=== PATIENT | male | born 1960 | race Caucasian/White ===

== ENCOUNTER 2020-09-12 10:27 | Inpatient (IN) ==
[2020-09-12] MEDS: GABAPENTIN 600 MG TABLET PO SCH ×2 (12:12→16:50)
[2020-09-12] MEDS: INSULIN LISPRO 100 UNITS/ML VIAL SC SCH ×2 (12:13→16:49)
[2020-09-12] MEDS: MEROPENEM 1 GM in NORMAL SALINE 100 ML IV SCH ×2 (12:14→18:27)
[2020-09-12 12:25] LABS: Hematocrit 33.3 % (42.0-52.0); Hemoglobin 10.9 gm/dL (13.5-18.0); Mean Cell Volume 89.5 fl (78-100); Mean Corpuscular Hemoglobin 29.3 pg (27-31); Mean Corpuscular Hgb Conc 32.7 g/dl (32-36); Mean Platelet Volume 9.1 fl (8-11.3); Platelet Count 293 K/mm3 (150-450); Red Blood Count 3.72 M/mm3 (4.7-6.0); Red Cell Distribution Width 12.9 % (11.5-14.0)
[2020-09-12 12:28] LABS: Total Cells Counted 100
[2020-09-12 12:37] LABS: Albumin * 2.8 gm/dl (3.4-5.0); Anion Gap 14.7 mmol/L (6.8-13.8); BUN/Creatinine Ratio 12.4 (9.0-21.6); Bilirubin, Total 0.3 mg/dL (0.0-1.1); Ca. Corrected For Albumin 9.7 mg/dL (8.4-10.2); Calcium * 9.1 mg/dL (7.9-10.9); Carbon Dioxide 25.3 mmol/L (24-32.6); Total Protein 7.5 gm/dL (6.2-8.2)
[2020-09-12] MEDS ORDERED: NORMAL SALINE 1,000 ML IV PRN (12:58)
[2020-09-12] MEDS ORDERED: ALPRAZolam 1 MG TABLET PO ONE (13:30)
[2020-09-12 13:51] LABS: Band 3 % (0-2.0); Lymphocyte 10 % (20-51); Monocyte 10 % (0-9); Neutrophil 77 % (42-75); Neutrophil # 11.6 K/mm3 (1.3-6.0)
[2020-09-12 13:52] LABS: Platelet Estimate Normal (NORMAL); RBC Morphology Normal (NORMAL)
--- NOTE | 2020-09-12 15:32 | HP ---
Chief Complaint - Chief Complaint Date of Service: 09/12/20 Time of Service: 11:00 Chief Complaint: Right foot swelling and redness History of Present Illness: Дмитрий is a 60 yo male presenting to clinic for right great toe swelling, pain, and redness. He reports the symptoms started 5 days ago with fever and chills. He was seen in the ER and had an array of testing done including labs which were significant for WBC of 17k, lactic acid of 3.5, and an elevated procalcitonin. He had a negative covid, negative influenza, and a positive strep swab. Chest xray was negative for acute illness. He was treated with penicillin. Two days later he began noticing right great toe redness, pain, and swelling. It swelled large enough that two days ago it started to weep fluid. He continues to have fever, general malaise, fatigue, and worsening redness, pain, and swelling. His right foot is now all swollen and red. Labs were checked and his WBC remains elevated at 15k and his procalcitonin remains elevate at 1.8. His creatinine which was 1.8 5 days ago is now 2.5 and he currently has a fever of 38.1. Medical History (Last Reviewed 09/12/20 @ 10:59 by Rachel Byrd RN) Hypertension (Chronic) Onset Date: Unknown Hypercholesterolemia (Chronic) Onset Date: Unknown Hemianopia, homonymous, left (Chronic) Onset Date: Unknown Diabetic nephropathy (Chronic) Onset Date: Unknown Diabetes mellitus, type II (Chronic) Onset Date: Unknown Diabetic eye exam Onset Date: 05/18/18 05/18/2019: [facility] Dr. Po Le; diabetic retinopathy was not found in either eye. 05/14/2018: [facility] Dr. Po Le; diabetic retinopathy was not found in either eye. 05/10/2017: [facility] Dr. Po Le; diabetic retinopathy was not found in either eye. CVA (cerebral vascular accident) Onset Date: Unknown Surgical History: Surgical History (Last Reviewed 09/12/20 @ 10:59 by Rachel Byrd RN) History of tonsillectomy Onset Date: Unknown Family History: Family History (Last Reviewed 09/12/20 @ 10:59 by Rachel Byrd RN) Father Leukemia Mother Hypertension Hypercholesteremia Social History: (Last Reviewed 09/12/20 @ 11:00 by Rachel Byrd RN) Social History: adopted: No long-term: No Marital status: household members: family number of children: 1 current occupational status: retired Previous occupational history: [employer] Highest level of school completed/degree received: high school graduate Financial difficulty paying for basics: not very hard Sexually Active: Yes Service: No Tobacco: Smoking Status: Never smoker Alcohol: alcohol intake: former Substance Use: substance use type: does not use Dietary Habits: caffeine: Yes Type: coffee Cassia/Samaritan: special cassia needs: No Review Of Systems (GEN) - Review of Systems Generalized/Overall Review: Present: Weakness, Chills, Fever, Malaise, Fatigue EENTM: Present: No Symptoms Reported Respiratory: Absent: Cough, Shortness of Breath Cardiac: Absent: Chest Pain, Palpitations Abdominal: Absent: Nausea, Vomiting Genitourinary: Absent: Burning, Frequency Musculoskeletal: Present: Joint Pain, Joint Swelling Neurological: Present: Anxiety, Weakness Skin: Present: Change in Color Endocrine: Present: No Symptoms Reported Immunizations: IMMUNIZATION HX Immunizations Up to Date Yes History of Influenza Vaccine No Hx Pneumococcal Vaccination No Allergies/Adverse Reactions: Allergies Allergy/AdvReac Type Severity Reaction Status Date / Time No Known Allergies Allergy Verified 09/12/20 10:58 Home Medications: HOME MEDICATIONS Accu-Chek Sharona Plus Meter See Dose Instructions .ROUTE .MEDSUPPLY #1 ea NS 09/30/18 [Last Taken Unknown] rosuvastatin 40 mg tablet 40 mg PO DAILY #90 tab 01/13/20 [Last Taken Unknown] metoprolol succinate 50 mg tablet,extended release 24 hr 50 mg PO DAILY #90 tab 06/02/20 [Last Taken Unknown] lisinopril 20 mg-hydrochlorothiazide 25 mg tablet 2 tab PO DAILY #180 tab 06/28/20 [Last Taken Unknown] Accu-Chek Sharona Control Soln solution See Rx Instructions .ROUTE .MEDSUPPLY #1 ea NS 08/08/20 [Last Taken Unknown] Accu-Chek Sharona Plus test strp See Dose Instructions .ROUTE .MEDSUPPLY #100 ea NS 08/08/20 [Last Taken Unknown] lancets See Dose Instructions .ROUTE .MEDSUPPLY #100 ea 08/08/20 [Last Taken Unknown] amlodipine 10 mg tablet 10 mg PO DAILY #90 tab 08/09/20 [Last Taken Unknown] blood sugar diagnostic See Dose Instructions .ROUTE .MEDSUPPLY #50 ea 08/09/20 [Last Taken Unknown] gabapentin 600 mg tablet 1,200 mg PO TID 90 Days #540 tab 08/09/20 [Last Taken Unknown] glimepiride 2 mg tablet 2 mg PO DAILY #90 tab 08/09/20 [Last Taken Unknown] metformin 1,000 mg tablet 1,000 mg PO BID #180 tab 08/09/20 [Last Taken Unknown] rivaroxaban 20 mg tablet 20 mg PO DAILY 90 Days #90 tab 08/09/20 [Last Taken Unknown] Ascorbic Acid [Vitamin C] 500 mg PO DAILY 09/12/20 [Last Taken Unknown] Multivitamin 1 ea PO DAILY 09/12/20 [Last Taken Unknown] Exam - Exam Vital Signs: Vital Signs - Last Taken Temp 38.1 C H 09/12/20 11:05 Pulse 98 09/12/20 11:05 Resp 16 09/12/20 11:05 BP 136/73 09/12/20 11:05 Pulse Ox 96 09/12/20 11:05 Constitutional: Present: Alert, Oriented x3, Cooperative ENT Exam: Present: hearing grossly normal Eye Exam: bilateral eye: normal inspection Respiratory: Present: lungs clear, normal breath sounds, no respiratory distress Cardiovascular/Chest: Present: no murmur, tachycardia Peripheral Pulses: radial (R): 2+, radial (L): 2+ Abdomen: Present: Normal bowel sounds, soft, nontender, nondistended Skin Exam: Present: other - Severe erythema of right great toe spreading through foot to ankle, more prominent medially, diffuse swelling of right foot with the most pronounced swelling at right great toe which appears like it is about to burst and is the size of raquet ball. Right great toe is actively weeping serous fluid Neurologic: Present: alert, normal mood/affect, oriented x 3 Eye contact: Present: cooperative, good eye contact, normal speech Diagnostic Studies: Abnormal Lab Results 09/12/20 09/12/20 09/12/20 Range/Units 12:09 12:09 12:09 WBC 15.0 H (4.0-10.5) K/mm3 RBC 3.72 L (4.7-6.0) M/mm3 Hgb 10.9 L (13.5-18.0) gm/dL Hct 33.3 L (42.0-52.0) % Neutrophils % (Manual) 77 H (42-75) % Band Neuts % (Manual) 3 H (0-2.0) % Lymphocytes % (Manual) 10 L (20-51) % Monocytes % (Manual) 10 H (0-9) % Neutrophils # (Manual) 11.6 H (1.3-6.0) K/mm3 Monocytes # (Manual) 1.5 H (0.0-1.0) k/mm3 Anion Gap 14.7 H (6.8-13.8) mmol/L BUN 31 H (6-23) mg/dL Creatinine 2.50 H D (0.4-1.4) mg/dL Est GFR (Non-Af Amer) 28 L D (60-130) mL/min Random Glucose 256 H (70-110) mg/dL Albumin 2.8 L (3.4-5.0) gm/dl Procalcitonin 1.87 H (0.05-0.50) ng/mL Laboratory Results WBC 15.0 K/mm3 (4.0-10.5) H 09/12/20 12:09 RBC 3.72 M/mm3 (4.7-6.0) L 09/12/20 12:09 Hgb 10.9 gm/dL (13.5-18.0) L 09/12/20 12:09 Hct 33.3 % (42.0-52.0) L 09/12/20 12:09 MCV 89.5 fl (78-100) 09/12/20 12:09 MCH 29.3 pg (27-31) 09/12/20 12:09 MCHC 32.7 g/dl (32-36) 09/12/20 12:09 RDW 12.9 % (11.5-14.0) 09/12/20 12:09 Plt Count 293 K/mm3 (150-450) 09/12/20 12:09 MPV 9.1 fl (8-11.3) 09/12/20 12:09 Neutrophils % (Manual) 77 % (42-75) H 09/12/20 12:09 Band Neuts % (Manual) 3 % (0-2.0) H 09/12/20 12:09 Lymphocytes % (Manual) 10 % (20-51) L 09/12/20 12:09 Monocytes % (Manual) 10 % (0-9) H 09/12/20 12:09 Neutrophils # (Manual) 11.6 K/mm3 (1.3-6.0) H 09/12/20 12:09 Lymphocytes # (Manual) 1.5 k/mm3 (1.5-3.5) 09/12/20 12:09 Monocytes # (Manual) 1.5 k/mm3 (0.0-1.0) H 09/12/20 12:09 Platelet Estimate Normal (NORMAL) 09/12/20 12:09 RBC Morphology Normal (NORMAL) 09/12/20 12:09 Sodium 137 mmol/L (132-142) 09/12/20 12:09 Plasma Sodium 139 mmol/L (130-142) 09/12/20 12:09 Potassium 4.0 mmol/L (3.4-4.6) 09/12/20 12:09 Chloride 101 mmol/L (97-106) 09/12/20 12:09 Carbon Dioxide 25.3 mmol/L (24-32.6) 09/12/20 12:09 Anion Gap 14.7 mmol/L (6.8-13.8) H 09/12/20 12:09 BUN 31 mg/dL (6-23) H 09/12/20 12:09 Creatinine 2.50 mg/dL (0.4-1.4) H D 09/12/20 12:09 Est GFR (Non-Af Amer) 28 mL/min (60-130) L D 09/12/20 12:09 BUN/Creatinine Ratio 12.4 (9.0-21.6) 09/12/20 12:09 Random Glucose 256 mg/dL (70-110) H 09/12/20 12:09 Lactic Acid, Venous 1.9 mmol/L (0.4-2.0) 09/12/20 12:09 Calcium 9.1 mg/dL (7.9-10.9) 09/12/20 12:09 Calcium Adj for Albumin 9.7 mg/dL (8.4-10.2) 09/12/20 12:09 Total Bilirubin 0.3 mg/dL (0.0-1.1) 09/12/20 12:09 AST 24 U/L (0-48) 09/12/20 12:09 ALT 42 U/L (19-67) 09/12/20 12:09 Alkaline Phosphatase 97 U/L (50-170) 09/12/20 12:09 Total Protein 7.5 gm/dL (6.2-8.2) 09/12/20 12:09 Albumin 2.8 gm/dl (3.4-5.0) L 09/12/20 12:09 Procalcitonin 1.87 ng/mL (0.05-0.50) H 09/12/20 12:09 SARS-CoV-2 (PCR) Not detected (NotDetected) 09/12/20 11:35 Assessment/Plan - Narrative Narrative: Дмитрий is a 60 yo male with suspected severe sepsis (fever, leukocytosis, and acute on chronic kidney failure) secondary to diabetic foot ulcer with cellulitis with possible osteomyelitis. He has failed outpatient treatment as he has been on penicillin since 09/07/20 and his foot erythema, swel ling, and pain are worsening. Right great toe infection is severe appearing with the toe the size of a raquetball, bright red, and weeping fluid. I am concerned that there is osteomyelitis and possible sepsis. He has failed outpatient treatment and needs IV antibiotics to cover for the potential sepsis. Will treat with Meropenem and will give IV NS sepsis bolus. Will obtain blood cultures x 2. He has acute on chronic kidney failure with GFR 28 which is worsened from his baseline which is normally 30-60. He is currently in stage 4. Will treat with IV fluids as his GFR is currently too low to get contrast enhanced MRI which is needed to evaluate for osteomyelitis. Will hold metformin and treat diabetes with corrective dose insulin in the hospital. Expect 2-3 days to treat with IV antibiotics, obtain MRI, and monitor for response to treatment. Potential for surgery if there is severe infection into the bone. Will admit to inpatient status due to severity of infection and failed outpatient treatment. - Assessment/Plan (1) Sepsis Problem: Acute Qualifiers: Sepsis type: sepsis due to unspecified organism Sepsis acute organ dysfunction status: with acute organ dysfunction Severe sepsis acute organ dysfunction type: acute renal failure Acute renal failure type: unspecified Severe sepsis shock status: without septic shock Qualified Code(s): A41.9 - Sepsis, unspecified organism; R65.20 - Severe sepsis without septic shock; N17.9 - Acute kidney failure, unspecified (2) Diabetic foot ulcer with osteomyelitis Problem: Suspected (3) Osteomyelitis of great toe of right foot Problem: Suspected (4) Cellulitis of great toe, right Problem: Acute (5) Diabetes mellitus, type II Problem: Chronic Qualifiers: Diabetes mellitus snf insulin use: without snf use Diabetes mellitus complication status: with skin complications Diabetes mellitus complication detail: with foot ulcer Qualified Code(s): E11.621 - Type 2 diabetes mellitus with foot ulcer; L97.509 - Non-pressure chronic ulcer of other part of unspecified foot with unspecified severity (6) Hemianopia, homonymous, left Problem: Chronic (7) Strep pharyngitis Problem: Chronic
[2020-09-12] MEDS: SACCHAROMYCES BOULARDII 250 MG CAPSULE PO SCH (20:27)
[2020-09-12] MEDS: ROSUVASTATIN CALCIUM 20 MG TABLET PO SCH (20:27)
[2020-09-13] MEDS: MEROPENEM 1 GM in NORMAL SALINE 100 ML IV SCH ×3 (02:43→18:46)
[2020-09-13] MEDS: INSULIN LISPRO 100 UNITS/ML VIAL SC SCH ×3 (06:53→16:48)
[2020-09-13] MEDS: HYDROCHLOROTHIAZIDE 25 MG TABLET PO SCH (08:18)
[2020-09-13] MEDS: LISINOPRIL 40 MG TABLET PO SCH (08:19)
[2020-09-13] MEDS: RIVAROXABAN 20 MG TABLET PO SCH (08:19)
[2020-09-13] MEDS: GLIMEPIRIDE 2 MG TABLET PO SCH (08:19)
[2020-09-13] MEDS: amLODIPine BESYLATE 10 MG TABLET PO SCH (08:19)
[2020-09-13] MEDS: METOPROLOL SUCCINATE 50 MG TABLET.SA PO SCH (08:19)
[2020-09-13] MEDS: MULTIVITAMINS 1 CAP CAPSULE PO SCH (08:19)
[2020-09-13] MEDS: GABAPENTIN 600 MG TABLET PO SCH ×3 (08:19→16:51)
[2020-09-13] MEDS: SACCHAROMYCES BOULARDII 250 MG CAPSULE PO SCH ×2 (08:19→20:31)
[2020-09-13 08:58] LABS: Hematocrit 32.4 % (42.0-52.0); Hemoglobin 10.7 gm/dL (13.5-18.0); Mean Cell Volume 89.3 fl (78-100); Mean Corpuscular Hemoglobin 29.5 pg (27-31); Neutrophil # 11.2 K/mm3 (1.3-6.0); Neutrophil % 74.7 % (42-75.0); Platelet Count 410 K/mm3 (150-450); Red Blood Count 3.63 M/mm3 (4.7-6.0); Red Cell Distribution Width 12.9 % (11.5-14.0)
[2020-09-13 09:00] LABS: Total Cells Counted 100
[2020-09-13 09:09] LABS: Eosinophil 1 % (0-3); Lymphocyte 8 % (20-51); Monocyte 8 % (0-9); Neutrophil 83 % (42-75); Neutrophil # 12.5 K/mm3 (1.3-6.0); Platelet Estimate Normal (NORMAL); RBC Morphology Normal (NORMAL)
[2020-09-13 09:36] LABS: Albumin * 2.8 gm/dl (3.4-5.0); BUN/Creatinine Ratio 12.2 (9.0-21.6); Bilirubin, Total 0.5 mg/dL (0.0-1.1); Ca. Corrected For Albumin 9.8 mg/dL (8.4-10.2); Calcium * 9.2 mg/dL (7.9-10.9); Carbon Dioxide 28.4 mmol/L (24-32.6); Potassium 3.4 mmol/L (3.4-4.6); Total Protein 7.8 gm/dL (6.2-8.2)
[2020-09-13] MEDS ORDERED: ALPRAZolam 1 MG TABLET PO ONE (09:54)
[2020-09-13] MEDS ORDERED: NORMAL SALINE 1,000 ML IV PRN (09:55)
[2020-09-13] MEDS ORDERED: ACETAMINOPHEN 500 MG TABLET PO PRN (14:55)
[2020-09-13] MEDS: HYDROcodone/ACETAMINOPHEN 1 EACH TABLET PO PRN ×2 (15:09→18:46)
--- NOTE | 2020-09-13 16:37 | CONS ---
[facility] - General Date of Service: 09/13/20 Narrative: Patient seen today resting in bedside chair. accompanies him in his room and provides some history. States he was seen in the ER a few days ago with fevers and chills. Tested positive for Strep, so was started on penicillin. He then started to notice increasing redness, swelling, and drainage from the great toe that was not present when he had presented to the ER. The redness began to spread up his foot to the level of his ankle. He presented to his PCP, Dr. Mack, for further evaluation, and due to failed outpatient treatment, was admitted for IV antibiotics and possible sepsis. MRI was obtained of his foot due to concerns for possible osteomyelitis of the great toe given its appearance. This came back negative for bone infection. I was consulted for further evaluation and treatment of the cellulitis in his foot as well as drainage from the great toe. 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 He is usually able to manage himself at home. relates intermittent cracking of skin between his toes, however did not have any skin cracking at the time of his ER visit. Does report history of gout, but states this feels much different, and is spreading up his foot. He is diabetic and does have some neuropathy symptoms for which he takes gabapentin. Source: patient, family Exam Limitations: no limitations - History of Present Illness Timing/Duration: getting worse Associated Symptoms: fever/chills Allergies/Adverse Reactions: Allergies No Known Allergies Allergy (Verified 09/12/20 10:58) Home Medications: Home Medications Medication Instructions Recorded Last Taken Accu-Chek Sharona Plus Meter See Dose Instructions .ROUTE 09/30/18 Unknown .MEDSUPPLY #1 ea NS rosuvastatin 40 mg tablet 40 mg PO DAILY #90 tab 01/13/20 Unknown metoprolol succinate 50 mg 50 mg PO DAILY #90 tab 06/02/20 Unknown tablet,extended release 24 hr lisinopril 20 2 tab PO DAILY #180 tab 06/28/20 Unknown mg-hydrochlorothiazide 25 mg tablet Accu-Chek Sharona Control Soln See Rx Instructions .ROUTE 08/08/20 Unknown solution .MEDSUPPLY #1 ea NS Accu-Chek Sharona Plus test strp See Dose Instructions .ROUTE 08/08/20 Unknown .MEDSUPPLY #100 ea NS lancets See Dose Instructions .ROUTE 08/08/20 Unknown .MEDSUPPLY #100 ea amlodipine 10 mg tablet 10 mg PO DAILY #90 tab 08/09/20 Unknown blood sugar diagnostic See Dose Instructions .ROUTE 08/09/20 Unknown .MEDSUPPLY #50 ea gabapentin 600 mg tablet 1,200 mg PO TID 90 Days #540 tab 08/09/20 Unknown glimepiride 2 mg tablet 2 mg PO DAILY #90 tab 08/09/20 Unknown metformin 1,000 mg tablet 1,000 mg PO BID #180 tab 08/09/20 Unknown rivaroxaban 20 mg tablet 20 mg PO DAILY 90 Days #90 tab 08/09/20 Unknown Ascorbic Acid [Vitamin C] 500 mg PO DAILY 09/12/20 Unknown Multivitamin 1 ea PO DAILY 09/12/20 Unknown Medications - Medications Current Medications: Current Medications Hydrocodone Bitart/Acetaminophen (Hydrocodone/Acetaminophen 1 Each Tablet) 1 each PO Q3H PRN PRN Reason: Moderate Pain (pain scale 4-6) Stop: 10/13/20 14:56 Last Admin: 09/13/20 15:09 Dose: 1 each Documented by: Amlodipine Besylate (Amlodipine Besylate 10 Mg Tablet) 10 mg PO DAILY [facility] Stop: 10/13/20 09:01 Last Admin: 09/13/20 08:19 Dose: 10 mg Documented by: Gabapentin (Gabapentin 600 Mg Tablet) 1,200 mg PO TID [facility] Stop: 10/12/20 13:01 Last Admin: 09/13/20 14:10 Dose: 1,200 mg Documented by: Glimepiride (Glimepiride 2 Mg Tablet) 2 mg PO DAILY [facility] Stop: 10/13/20 09:01 Last Admin: 09/13/20 08:19 Dose: 2 mg Documented by: Hydrochlorothiazide (Hydrochlorothiazide 25 Mg Tablet) 50 mg PO DAILY [facility] Stop: 10/13/20 09:01 Last Admin: 09/13/20 08:18 Dose: 50 mg Documented by: Meropenem 1 gm/ Sodium (Chloride) 100 mls @ 200 mls/hr IV Q8H JUAN DANIEL; Protocol Stop: 10/12/20 11:01 Last Infusion: 09/13/20 10:51 Dose: Infused Documented by: Sodium Chloride (Sodium Chloride 0.9%) 1,000 mls @ 999 mls/hr IV .Q1H1M PRN PRN Reason: HYDRATION Stop: 10/12/20 12:59 Last Infusion: 09/12/20 14:45 Dose: Infused Documented by: Sodium Chloride (Sodium Chloride 0.9%) 1,000 mls @ 100 mls/hr IV .Q10H PRN PRN Reason: HYDRATION Stop: 10/13/20 09:56 Last Admin: 09/13/20 10:21 Dose: 100 mls/hr Documented by: Insulin Human Lispro (Insulin Lispro 100 Units/Ml Vial) 0 units SC ACINS [facility]; Protocol Stop: 10/12/20 12:01 Last Admin: 09/13/20 14:09 Dose: 3 units Documented by: Lisinopril (Lisinopril 40 Mg Tablet) 40 mg PO DAILY [facility] Stop: 10/13/20 09:01 Last Admin: 09/13/20 08:19 Dose: 40 mg Documented by: Metoprolol Succinate (Metoprolol Succinate 50 Mg Tablet.Sa) 50 mg PO DAILY [facility] Stop: 10/13/20 09:01 Last Admin: 09/13/20 08:19 Dose: 50 mg Documented by: Multivitamins/Folic Acid (Multivitamins 1 Cap Capsule) 1 cap PO DAILY [facility] Stop: 10/13/20 09:01 Last Admin: 09/13/20 08:19 Dose: 1 cap Documented by: Rivaroxaban (Rivaroxaban 20 Mg Tablet) 20 mg PO DAILY [facility] Stop: 10/13/20 09:01 Last Admin: 09/13/20 08:19 Dose: 20 mg Documented by: Rosuvastatin Calcium (Rosuvastatin Calcium 20 Mg Tablet) 40 mg PO HS [facility] Stop: 10/12/20 21:01 Last Admin: 09/12/20 20:27 Dose: 40 mg Documented by: Saccharomyces Boulardii (Saccharomyces Boulardii 250 Mg Capsule) 250 mg PO BID [facility] Stop: 10/12/20 21:01 Last Admin: 09/13/20 08:19 Dose: 250 mg Documented by: Review of Systems - Review of Systems Generalized/Overall Review: Present: Chills, Fever, Malaise Respiratory: Absent: Shortness of Breath Cardiac: Present: Edema Abdominal: Absent: Nausea, Vomiting, Diarrhea Musculoskeletal: Present: Other - right foot pain Neurological: Present: Numbness, Tingling Skin: Present: Change in Color, Other - erythema right foot, weeping skin right foot Physical Examination - Exam Narrative: Erythema present in the right foot extending from the great and 2nd toes up the medial dorsum of the foot to the level of the ankle. Skin is hot to touch and taught from edema. There is an area of weeping present to the medial aspect of the great toe with a break in skin measuring 1 x 0.4 cm, as well as a callus to the plantar 1st metatarsal head area. There is also some drainage noted between the great and 2nd toes with skin maceration. What appears to be a large blister or superficial abscess is extending from this callused area connecting to the areas of weeping skin. This is incised and drained at bedside to assess for any deeper abscess or underlying ulcerations. Upon incision, a large amount of serous fluid is drained. There is a significant amount of macerated tissue underneath that is easily debrided away with a wet gauze pad. The entire area of blister/abscess measures approximately 8 cm x 5 cm. There are 2 underlying ulcerations noted, one at the proximal medial great toe where weeping was noted measuring 1.5 x 1 x 0.1 cm. The second ulceration present sub 1st metatarsal head measuring 1.6 x 1.1 x 0.1 cm. No tunneling or undermining. Loss of tissue to full thickness with exposure of subcutaneous fat layer. Bases with a mix of yellow fibrotic tissue as well as red granulation tissue. Surrounding tissue erythematous, hot to touch, and edematous. Significant amounts of serous drainage, no malodor. No exposed tendon or bone. MRI reviewed. Do not appreciate any deeper abscess formation, which correlates to physical exam findings. No immediate concerns for infection in bone. Agree with report as noted in chart. Vital Signs: Vital Signs - Last Taken Temp 36.8 C 09/13/20 14: Pulse 76 09/13/20 14:22 Resp 16 09/13/20 14: BP 129/43 09/13/20 14:22 Pulse Ox 93 09/13/20 14:22 O2 Oxygen Delivery Method Room Air Constitutional: Present: Alert, Oriented x3, Cooperative Peripheral Pulses: dorsalis-pedis (R): 1+ - Posterior tibial trace - possibly due to presence of edema about the foot/ankle Extremity: Present: pedal edema Skin Exam: Present: other - see details above Neurologic: Present: sensory deficit Appearance: Present: appropriate appearance Eye contact: Present: cooperative - Results and Findings: Lab/Microbiology results last 24 hrs: Abnormal/Pending Laboratory Last 24 HRS 09/13/20 09/13/20 08:50 08:50 WBC 15.0 H RBC 3.63 L Hgb 10.7 L Hct 32.4 L Immature Gran % (Auto) 0.70 H Immature Gran # (Auto) 0.10 H Neutrophils % (Manual) 83 H Lymphocytes % 13.2 L Lymphocytes % (Manual) 8 L Monocytes % 10.4 H Neutrophils # 11.2 H Neutrophils # (Manual) 12.5 H Lymphocytes # (Manual) 1.2 L Monocytes # 1.6 H Monocytes # (Manual) 1.2 H BUN 27 H Creatinine 2.22 H Est GFR (Non-Af Amer) 32 L Random Glucose 258 H Albumin 2.8 L Culture 09/12/20 12:20 Blood Culture - Preliminary Blood NO GROWTH 24 HOURS 09/12/20 12:09 Blood Culture - Preliminary Blood NO GROWTH 24 HOURS - Assessments/Findings (1) Cellulitis of great toe, right Diagnosis(s): Discussed the condition and treatment options with patient/family. Infection discussed with patient and today. Recommend bedside debridement of area of concern for blister/abscess to assess for any deeper tissue damage or abscess formation. Patient and in agreement and give verbal consent. Skin is prepped with alcohol. A#15 blade is utilized to excise the callus to the plantar surface of the 1st metatarsal head. Upon excision of this callus, a copious amount of serous drainage escapes from the abscessed area extending distally. This area is probed and connects to the area of weeping skin at the medial base of the great toe. Due to the level of drainage expressed as well as communication with the medial break in skin, it is decided to completed de-roof this entire area. A #15 blade is utilized to excise all overlying skin down to underlying healthy appearing tissue. There is a significant amount of macerated tissue underlying the roof of this abscess. This is easily debrided away with a saline soaked gauze pad. Once this macerated tissue is removed, the majority of underlying skin appears to be intact. It is red, granular in appearance. There are 2 underlying ulcerations, which are likely source of the superficial abscess/blister formation. These are debrided at bedside with #15 blade excising devitalized tissue down to healthy bleeding tissue. The area is flushed with sterile saline. Deep swab cultures are then taken. The site is then dressed with Aquacel Ag, dry gauze, roll gauze, and tape. I will plan daily dressing changes while he remains inpatient. I anticipate he will require at least 3 days of IV antibiotic treatment given the appearance of his foot and systemic symptoms he is exhibiting. Will continue with current IV antibiotics, and will adjust accordingly as culture results return. Patient encouraged to decrease activity level and elevate extremity when resting. Post op shoe is ordered and is to be worn with all weightbearing activity. Patient educated on proper use of device. Advised patient on duration and frequency of use. Device dispensed for stability and offloading. Discontinue if pain or numbness develops. Will continue to follow. Problem: Acute
[2020-09-13] MEDS: ROSUVASTATIN CALCIUM 20 MG TABLET PO SCH (20:31)
--- NOTE | 2020-09-13 21:41 | PN ---
Subjective - Date and Time Seen Date: 09/13/20 Time: 16:00 Subjective Narrative: He has had more purulent drainage today. Swelling remains severe, unable to move his toes. He thinks redness is a little less bright red. He has felt chilled today. WBC remained at 15k. Creatinine improved to 2.2. GFR improved enough for MRI to be performed. MRI showed cellulitis. No osteomyelitis. Discussed case with Dr. Allen (Podiatry) who was consulted for helping with infection of toe/foot. Objective - Vitals Vitals: Last Vital Signs Temp 36.2 C 09/13/20 18:11 Pulse 70 09/13/20 18:11 Resp 16 09/13/20 18:11 BP 121/61 09/13/20 18:11 Pulse Ox 95 09/13/20 18:11 - Abnormal Lab Findings Abnormal Lab Findings: Abnormal Lab Results 09/13/20 09/13/20 Range/Units 08:50 08:50 WBC 15.0 H (4.0-10.5) K/mm3 RBC 3.63 L (4.7-6.0) M/mm3 Hgb 10.7 L (13.5-18.0) gm/dL Hct 32.4 L (42.0-52.0) % Immature Gran % (Auto) 0.70 H (0.001-0.429) % Immature Gran # (Auto) 0.10 H (0.000-0.0310) K/mm3 Neutrophils % (Manual) 83 H (42-75) % Lymphocytes % 13.2 L (20-51) % Lymphocytes % (Manual) 8 L (20-51) % Monocytes % 10.4 H (0.0-9) % Neutrophils # 11.2 H (1.3-6.0) K/mm3 Neutrophils # (Manual) 12.5 H (1.3-6.0) K/mm3 Lymphocytes # (Manual) 1.2 L (1.5-3.5) k/mm3 Monocytes # 1.6 H (0.0-1.0) k/mm3 Monocytes # (Manual) 1.2 H (0.0-1.0) k/mm3 BUN 27 H (6-23) mg/dL Creatinine 2.22 H (0.4-1.4) mg/dL Est GFR (Non-Af Amer) 32 L (60-130) mL/min Random Glucose 258 H (70-110) mg/dL Albumin 2.8 L (3.4-5.0) gm/dl - Exam Constitutional: Present: Alert, Oriented x3, Cooperative, No distress Respiratory: Present: lungs clear, normal breath sounds Cardiovascular/Chest: Present: no murmur, tachycardia Abdomen: Present: Normal bowel sounds, soft, nontender, nondistended Skin Exam: Present: other - Erythema slightly improved. Severe swelling of foot. Unable to move toes due to swelling. Purulent weeping around right great toe. ulcer at lateral and medial aspect of great toe. Neurologic: Present: alert, normal mood/affect, oriented x 3 Assessment/Plan Plan Narrative: Cellulitis improved a little in terms of erythema. MRI showed no osteomyelitis. Blood cultures negative at this time. Infection is severe and requiring broad spectrum antibiotics as there remains concern for sepsis vs severe infection of foot, potentially requiring amputation. Podiatry consulted for management of wound. Continue meropenem. Kidney function improved. Continue fluids. - Problems/Diagnosis (1) Sepsis Problem: Acute Qualifiers: Sepsis type: sepsis due to unspecified organism Sepsis acute organ dysfunction status: with acute organ dysfunction Severe sepsis acute organ dysfunction type: acute renal failure Acute renal failure type: unspecified Severe sepsis shock status: without septic shock Qualified Code(s): A41.9 - Sepsis, unspecified organism; R65.20 - Severe sepsis without septic shock; N17.9 - Acute kidney failure, unspecified (2) Diabetic foot ulcer with osteomyelitis Problem: Ruled-out (3) Osteomyelitis of great toe of right foot Problem: Ruled-out (4) Cellulitis of great toe, right Problem: Acute (5) Diabetes mellitus, type II Problem: Chronic Qualifiers: Diabetes mellitus panel laminator insulin use: without halfway use Diabetes mellitus complication status: with skin complications Diabetes mellitus complication detail: with foot ulcer Qualified Code(s): E11.621 - Type 2 diabetes mellitus with foot ulcer; L97.509 - Non-pressure chronic ulcer of other part of unspecified foot with unspecified severity (6) Hemianopia, homonymous, left Problem: Chronic (7) Strep pharyngitis Problem: Chronic
[2020-09-14] MEDS: HYDROcodone/ACETAMINOPHEN 1 EACH TABLET PO PRN ×6 (01:40→20:53)
[2020-09-14] MEDS: MEROPENEM 1 GM in NORMAL SALINE 100 ML IV SCH ×3 (02:54→18:33)
[2020-09-14] MEDS: INSULIN LISPRO 100 UNITS/ML VIAL SC SCH ×3 (07:56→17:54)
[2020-09-14] MEDS: MULTIVITAMINS 1 CAP CAPSULE PO SCH (08:18)
[2020-09-14] MEDS: amLODIPine BESYLATE 10 MG TABLET PO SCH (08:18)
[2020-09-14] MEDS: GLIMEPIRIDE 2 MG TABLET PO SCH (08:18)
[2020-09-14] MEDS: GABAPENTIN 600 MG TABLET PO SCH ×3 (08:18→17:51)
[2020-09-14] MEDS: HYDROCHLOROTHIAZIDE 25 MG TABLET PO SCH (08:18)
[2020-09-14] MEDS: SACCHAROMYCES BOULARDII 250 MG CAPSULE PO SCH ×2 (08:18→20:54)
[2020-09-14] MEDS: RIVAROXABAN 20 MG TABLET PO SCH (08:19)
[2020-09-14] MEDS: LISINOPRIL 40 MG TABLET PO SCH (08:19)
[2020-09-14 08:20] LABS: Hematocrit 32.2 % (42.0-52.0); Hemoglobin 10.5 gm/dL (13.5-18.0); Mean Cell Volume 88.7 fl (78-100); Mean Corpuscular Hemoglobin 28.9 pg (27-31); Mean Corpuscular Hgb Conc 32.6 g/dl (32-36); Mean Platelet Volume 8.8 fl (8-11.3); Neutrophil # 8.4 K/mm3 (1.3-6.0); Neutrophil % 72.9 % (42-75.0); Platelet Count 364 K/mm3 (150-450); Red Blood Count 3.63 M/mm3 (4.7-6.0); White Blood Count 11.5 K/mm3 (4.0-10.5)
[2020-09-14] MEDS: METOPROLOL SUCCINATE 50 MG TABLET.SA PO SCH (08:20)
[2020-09-14 08:31] LABS: Albumin * 2.6 gm/dl (3.4-5.0); BUN/Creatinine Ratio 15.6 (9.0-21.6); Bilirubin, Total 0.3 mg/dL (0.0-1.1); Ca. Corrected For Albumin 9.8 mg/dL (8.4-10.2); Carbon Dioxide 25.6 mmol/L (24-32.6); Potassium 3.6 mmol/L (3.4-4.6); Total Protein 7.4 gm/dL (6.2-8.2)
--- NOTE | 2020-09-14 13:19 | PN ---
Subjective - Date and Time Seen Date: 09/14/20 Time: 13:14 Subjective Narrative: I have mild pain in my right great toe Objective Objective Narrative: 60-year-old male admitted for right great toe cellulitis was evaluated at bedside and was found to be afebrile and in no acute distress. This morning the patient reports improvement in the pain in his toe compared to previous days. He underwent incision and drainage at bedside by the mold clamper yesterday and significant purulent infectious drainage was removed. Cultures were taken but results not back yet, however labs this morning revealed significant decrea se in the WBCs. The patient is responding well to the current treatment so no changes will be made. Repeat labs will be ordered for tomorrow morning. - Review of Systems Generalized/Overall Review: Reports: No Symptoms Reported EENTM: Reports: No Symptoms Reported Respiratory: Reports: No Symptoms Reported Cardiac: Reports: No Symptoms Reported Abdominal: Reports: No Symptoms Reported Genitourinary Symptoms: Reports: No Symptoms Reported Musculoskeletal Complaints: Reports: Joint Pain - Right great toe pain Neurological: Reports: No Symptoms Reported Skin: Reports: No Symptoms Reported Endocrine: Reports: No Symptoms Reported - Vitals Vitals: Last Vital Signs Temp 36.9 C 09/14/20 11:28 Pulse 77 09/14/20 11:28 Resp 17 09/14/20 11:28 BP 131/62 09/14/20 11:28 Pulse Ox 95 09/14/20 11:28 - Abnormal Lab Findings Abnormal Lab Findings: Abnormal Lab Results 09/14/20 09/14/20 Range/Units 08:13 08:13 WBC 11.5 H D (4.0-10.5) K/mm3 RBC 3.63 L (4.7-6.0) M/mm3 Hgb 10.5 L (13.5-18.0) gm/dL Hct 32.2 L (42.0-52.0) % Immature Gran % (Auto) 1.20 H (0.001-0.429) % Immature Gran # (Auto) 0.14 H (0.000-0.0310) K/mm3 Lymphocytes % 13.2 L (20-51) % Monocytes % 11.2 H (0.0-9) % Neutrophils # 8.4 H (1.3-6.0) K/mm3 Monocytes # 1.3 H (0.0-1.0) k/mm3 BUN 33 H (6-23) mg/dL Creatinine 2.11 H (0.4-1.4) mg/dL Est GFR (Non-Af Amer) 34 L (60-130) mL/min Random Glucose 264 H (70-110) mg/dL AST 80 H (0-48) U/L ALT 100 H (19-67) U/L Albumin 2.6 L (3.4-5.0) gm/dl - Exam Constitutional: Present: Alert, Oriented x3, Cooperative, Well developed, Well nourished, No distress, Obese ENT Exam: Present: normal ENT inspection, hearing grossly normal Neck: Present: non-tender, full range of motion, supple, normal inspection Extremity: Present: normal range of motion, non-tender, no pedal edema, no calf tenderness, other - Right great toe wrapped in clean dry bandages. Skin Exam: Present: normal color, warm/dry, no cyanosis Appearance: Present: appropriate appearance, appropriate insight, neat, no memory impairment Eye contact: Present: cooperative, good eye contact, normal speech Thoughts: Present: normal thought pattern, no apparent hallucination Assessment/Plan Plan Narrative: We will keep the patient for an additional day for intrahospital care with IV antibiotics and repeat labs in the morning. - Problems/Diagnosis (1) Cellulitis of great toe, right Problem: Acute (2) Sepsis Problem: Acute Qualifiers: Sepsis type: sepsis due to unspecified organism Sepsis acute organ dysfunction status: with acute organ dysfunction Severe sepsis acute organ dysfunction type: acute renal failure Acute renal failure type: unspecified Severe sepsis shock status: without septic shock Qualified Code(s): A41.9 - Sepsis, unspecified organism; R65.20 - Severe sepsis without septic shock; N17.9 - Acute kidney failure, unspecified (3) Hypertension Problem: Chronic Qualifiers: Hypertension type: essential hypertension Qualified Code(s): I10 - Essential (primary) hypertension (4) Hypercholesterolemia Problem: Chronic (5) Diabetes mellitus, type II Problem: Chronic Qualifiers: Diabetes mellitus snf insulin use: without termite exterminator use Diabetes mellitus complication status: with skin complications Diabetes mellitus complication detail: with foot ulcer Qualified Code(s): E11.621 - Type 2 diabetes mellitus with foot ulcer; L97.509 - Non-pressure chronic ulcer of other part of unspecified foot with unspecified severity
--- NOTE | 2020-09-14 14:46 | PN ---
Subjective - Date and Time Seen Date: 09/14/20 Time: 14:00 Subjective Narrative: Patient seen resting in bedside chair. Reports pain in the right foot/great toe has improved since incision and debridement yesterday. States he has been afebrile all of today, no chills. Believes the redness in his foot is not as intense today. Still with a lot of swelling and cannot bend toes well, but believes he has improved since yesterday. Cultures taken have not resulted as of yet. Nursing states that they have left the dressing applied yesterday clean and intact, however they did have to change out the blue surgical bootie that they had covering the foot as he had drained through the dressing on to the bootie. He is wearing surgical shoe as instructed when bearing weight. No other concerns at this time. Objective - Review of Systems Generalized/Overall Review: Denies: Chills, Fever, Malaise Respiratory: Denies: Shortness of Breath Cardiac: Reports: Edema Abdominal: Denies: Nausea, Vomiting, Diarrhea Musculoskeletal Complaints: Reports: Other - right foot pain - improving Neurological: Reports: Numbness, Tingling Skin: Reports: Other - Erythema right foot, ulceration right foot following I&D - Vitals Vitals: Last Vital Signs Temp 36.9 C 09/14/20 11:28 Pulse 77 09/14/20 11:28 Resp 17 09/14/20 11:28 BP 131/62 09/14/20 11:28 Pulse Ox 95 09/14/20 11:28 - Abnormal Lab Findings Abnormal Lab Findings: Abnormal Lab Results 09/14/20 09/14/20 Range/Units 08:13 08:13 WBC 11.5 H D (4.0-10.5) K/mm3 RBC 3.63 L (4.7-6.0) M/mm3 Hgb 10.5 L (13.5-18.0) gm/dL Hct 32.2 L (42.0-52.0) % Immature Gran % (Auto) 1.20 H (0.001-0.429) % Immature Gran # (Auto) 0.14 H (0.000-0.0310) K/mm3 Lymphocytes % 13.2 L (20-51) % Monocytes % 11.2 H (0.0-9) % Neutrophils # 8.4 H (1.3-6.0) K/mm3 Monocytes # 1.3 H (0.0-1.0) k/mm3 BUN 33 H (6-23) mg/dL Creatinine 2.11 H (0.4-1.4) mg/dL Est GFR (Non-Af Amer) 34 L (60-130) mL/min Random Glucose 264 H (70-110) mg/dL AST 80 H (0-48) U/L ALT 100 H (19-67) U/L Albumin 2.6 L (3.4-5.0) gm/dl - Exam Exam Narrative: Erythema remains about the right foot, but does not appear to be as intense as previous visit, not as hot to touch. This is marked today to track progression. Incision and debridement site remains open, unchanged in size, draining copious amounts of serous fluid, which could be due in part to edema in his foot as well. Site of ulceration to the medial base of the great toe as well as plantar head of 1st metatarsal still with fibrotic, slough tissue present, remaining tissues red, healthy, granular. Overall appearance is improved, but far from resolved. Constitutional: Present: Alert, Oriented x3, Cooperative Extremity: Present: pedal edema, other - right foot pain - improved since incision and debridement yesterday Skin Exam: Present: other - see details above Neurologic: Present: sensory deficit Appearance: Present: appropriate appearance Eye contact: Present: cooperative Thoughts: Present: normal thought pattern Assessment/Plan - Problems/Diagnosis (1) Cellulitis of great toe, right Problem: Acute Narrative: Discussed the condition and treatment options with patient. The appearance of his foot has improved since I&D yesterday with less intense erythema and improvement in skin temperature. His WBC count has improved, and he has remain ed afebrile today. The I&D site relatively unchanged, which I would expect at less than 24 hours post procedure. He appears to be having a positive response to current treatment with overall improvement, however his symptoms are not yet resolved. He will likely require at least 2-3 weeks of antibiotic therapy following discharge, to be determined once culture results finalize. He will also require frequent follow up of the ulcerations that were uncovered following I&D. Discussed that future debridements will likely be necessary, and the extent of the debridements will depend on the appearance of his foot and response to treatment. There is a chance that he may need extensive surgical debridement with possible amputation should he fail to continue to improve. He states understanding of this. The site is cleansed today with sterile saline and dressed with Aquacel Ag, dry gauze, roll gauze, and tape. Due to the level of drainage he is having, I will place orders for dressings to be replaced whenever he soaks through as to keep as much moisture away from his skin as possible to reduce further skin breakdown. I still anticipate he will require at least 3 days of IV antibiotic treatment given the appearance of his foot and systemic symptoms he was exhibiting. Will continue with current IV antibiotics, and will adjust accordingly as culture results return. Patient again encouraged to decrease activity level and elevate extremity when resting. Continue use of post op shoe with all weightbearing activity. Will continue to follow.
[2020-09-14] MEDS: ROSUVASTATIN CALCIUM 20 MG TABLET PO SCH (20:54)
[2020-09-15] MEDS: MEROPENEM 1 GM in NORMAL SALINE 100 ML IV SCH ×3 (02:09→18:31)
[2020-09-15] MEDS: HYDROcodone/ACETAMINOPHEN 1 EACH TABLET PO PRN ×5 (02:12→19:45)
[2020-09-15 06:36] LABS: Hematocrit 29.7 % (42.0-52.0); Hemoglobin 9.6 gm/dL (13.5-18.0); Mean Cell Volume 89.5 fl (78-100); Mean Corpuscular Hemoglobin 28.9 pg (27-31); Mean Corpuscular Hgb Conc 32.3 g/dl (32-36); Mean Platelet Volume 8.7 fl (8-11.3); Neutrophil # 6.9 K/mm3 (1.3-6.0); Neutrophil % 65.6 % (42-75.0); Platelet Count 348 K/mm3 (150-450); Red Blood Count 3.32 M/mm3 (4.7-6.0); White Blood Count 10.4 K/mm3 (4.0-10.5)
[2020-09-15 06:52] LABS: Albumin * 2.4 gm/dl (3.4-5.0); Anion Gap 13.2 mmol/L (6.8-13.8); BUN/Creatinine Ratio 16.5 (9.0-21.6); Bilirubin, Total 0.2 mg/dL (0.0-1.1); Ca. Corrected For Albumin 9.7 mg/dL (8.4-10.2); Calcium * 8.7 mg/dL (7.9-10.9); Carbon Dioxide 25.3 mmol/L (24-32.6); Potassium 3.5 mmol/L (3.4-4.6); Total Protein 6.9 gm/dL (6.2-8.2)
[2020-09-15] MEDS: INSULIN LISPRO 100 UNITS/ML VIAL SC SCH ×3 (07:22→16:37)
[2020-09-15] MEDS: GLIMEPIRIDE 2 MG TABLET PO SCH (08:29)
[2020-09-15] MEDS: SACCHAROMYCES BOULARDII 250 MG CAPSULE PO SCH ×2 (08:30→20:42)
[2020-09-15] MEDS: MULTIVITAMINS 1 CAP CAPSULE PO SCH (08:30)
[2020-09-15] MEDS: HYDROCHLOROTHIAZIDE 25 MG TABLET PO SCH (08:30)
[2020-09-15] MEDS: amLODIPine BESYLATE 10 MG TABLET PO SCH (08:31)
[2020-09-15] MEDS: GABAPENTIN 600 MG TABLET PO SCH ×3 (08:31→16:54)
[2020-09-15] MEDS: LISINOPRIL 40 MG TABLET PO SCH (08:32)
[2020-09-15] MEDS: METOPROLOL SUCCINATE 50 MG TABLET.SA PO SCH (08:32)
[2020-09-15] MEDS: RIVAROXABAN 20 MG TABLET PO SCH (08:32)
--- NOTE | 2020-09-15 17:43 | PN ---
Subjective - Date and Time Seen Date: 09/15/20 Time: 17:00 Subjective Narrative: Patient seen resting in bedside chair. is with him in room. Reports continued intermittent pain in the right foot/great toe, but not as severe as day of admission. He remains afebrile, no chills. WBC count has normalized. Believes the redness in his foot has continued to improve, but has not resolved. Still with a lot of swelling and cannot bend toes well. He is not elevating his leg when seen today. Cultures taken have not resulted as of yet. Dressing was changed once over night due to saturating through with drainage. Has not been changed since, and states that it is soaked through again. He is wearing surgical shoe as instructed when bearing weight. No other concerns at this time. Objective - Review of Systems Generalized/Overall Review: Denies: Chills, Fever Cardiac: Reports: Edema Abdominal: Denies: Nausea, Vomiting, Diarrhea Musculoskeletal Complaints: Reports: Other - intermittent right foot pain Neurological: Reports: Numbness Skin: Reports: Other - right foot erythema, right foot ulceration - Vitals Vitals: Last Vital Signs Temp 36.8 C 09/15/20 14:21 Pulse 74 09/15/20 14:21 Resp 14 09/15/20 14:21 BP 122/58 09/15/20 14:21 Pulse Ox 95 09/15/20 14:21 - Abnormal Lab Findings Abnormal Lab Findings: Abnormal Lab Results 09/15/20 09/15/20 Range/Units 06:34 06:34 RBC 3.32 L (4.7-6.0) M/mm3 Hgb 9.6 L (13.5-18.0) gm/dL Hct 29.7 L (42.0-52.0) % Immature Gran % (Auto) 1.60 H (0.001-0.429) % Immature Gran # (Auto) 0.17 H (0.000-0.0310) K/mm3 Lymphocytes % 17.9 L (20-51) % Monocytes % 11.9 H (0.0-9) % Neutrophils # 6.9 H (1.3-6.0) K/mm3 Monocytes # 1.2 H (0.0-1.0) k/mm3 BUN 38 H (6-23) mg/dL Creatinine 2.31 H (0.4-1.4) mg/dL Est GFR (Non-Af Amer) 31 L (60-130) mL/min Random Glucose 259 H (70-110) mg/dL AST 77 H (0-48) U/L ALT 111 H (19-67) U/L Albumin 2.4 L (3.4-5.0) gm/dl - Exam Exam Narrative: Erythema remains about the right foot, not as intense about the proximal foot and has receded some from outlined area marked yesterday. Still with fairly intense erythema about the forefoot and toes, not as severe as day of admission, but worse than remainder of the foot. Edema remains about the foot, unchanged. Incision and debridement site remains open, unchanged in size, still draining copious amounts of serous fluid, which could be due in part to edema in his foot as well. Plantar medial arch with skin maceration due to level of drainage and saturation of the dressing. Site of ulceration to the medial base of the great toe as well as plantar head of 1st metatarsal still with fibrotic, slough tissue present. No change in size. These areas do not tunnel or track. Remaining tissues red, healthy, granular. Constitutional: Present: Alert, Oriented x3, Cooperative Extremity: Present: pedal edema, other - pain with pressure applied to plantar right foot, no crepitance noted, no fluctuance Skin Exam: Present: other - see details above Neurologic: Present: sensory deficit Appearance: Present: appropriate appearance Eye contact: Present: cooperative Assessment/Plan Plan Narrative: Discussed the condition and treatment options with patient and . Erythema continues to improve proximally, however forefoot and toes still with fairly intense erythema. Discussed that this area would likely be the last to show improvement as it is where everything started and from which his infection spread. His WBC count has normalized, and he has remained afebrile today. The I&D site relatively unchanged, which I would expect at this point following procedure. He appears to be having a positive response to current treatment with overall improvement, however his localized foot symptoms are far from resolved. He will likely require at least 2-3 weeks of antibiotic therapy following discharge, to be determined once culture results finalize. He will also require frequent follow up of the ulcerations that were uncovered following I&D, as well as the I&D site itself. Again discussed that future debridements will likely be necessary, and the extent of the debridements will depend on the appearance of his foot and response to treatment. There is a chance that he may need extensive surgical debridement with possible amputation should he fail to continue to improve. My ultimate goal is to keep him out of the OR and to heal this with aggressive local care and antibiotics, but explained that there is a very high possibility that he may need surgical care. He states understanding of this. The site is cleansed today with sterile saline as well as betadine solution to try to dry some of the macerated skin. It is then dressed with Aquacel Ag, dry gauze, roll gauze, and an SARITHA bandage. Will continue to have dressings replaced whenever he soaks through as to keep as much moisture away from his skin as possible to reduce further skin breakdown. I still anticipate he will require at least 3 days of IV antibiotic treatment given the appearance of his foot and systemic symptoms he was exhibiting. Will continue with current IV antibiotics, and will adjust accordingly as culture results return. Patient again encouraged to decrease activity level and elevate extremity frequently when resting to help reduce edema. Continue use of post op shoe with all weightbearing activity. Will continue to follow. 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
[2020-09-15] MEDS: ROSUVASTATIN CALCIUM 20 MG TABLET PO SCH (20:42)
--- NOTE | 2020-09-16 00:18 | PN ---
Subjective - Date and Time Seen Date: 09/15/20 Time: 12:30 Subjective Narrative: He denies fever, chills, nausea, or vomiting. Toe has been incised and drained by podiatry and wound care performed daily by Dr. Aleln. WBC normalized today. Wound culture having preliminary growth. Objective - Vitals Vitals: Last Vital Signs Temp 36.9 C 09/15/20 21:33 Pulse 78 09/15/20 21:33 Resp 20 09/15/20 21:33 BP 122/73 09/15/20 21:33 Pulse Ox 96 09/15/20 21:33 - Abnormal Lab Findings Abnormal Lab Findings: Abnormal Lab Results 09/15/20 09/15/20 Range/Units 06:34 06:34 RBC 3.32 L (4.7-6.0) M/mm3 Hgb 9.6 L (13.5-18.0) gm/dL Hct 29.7 L (42.0-52.0) % Immature Gran % (Auto) 1.60 H (0.001-0.429) % Immature Gran # (Auto) 0.17 H (0.000-0.0310) K/mm3 Lymphocytes % 17.9 L (20-51) % Monocytes % 11.9 H (0.0-9) % Neutrophils # 6.9 H (1.3-6.0) K/mm3 Monocytes # 1.2 H (0.0-1.0) k/mm3 BUN 38 H (6-23) mg/dL Creatinine 2.31 H (0.4-1.4) mg/dL Est GFR (Non-Af Amer) 31 L (60-130) mL/min Random Glucose 259 H (70-110) mg/dL AST 77 H (0-48) U/L ALT 111 H (19-67) U/L Albumin 2.4 L (3.4-5.0) gm/dl - Exam Constitutional: Present: Alert, Oriented x3, Cooperative ENT Exam: Present: hearing grossly normal Respiratory: Present: lungs clear, normal breath sounds Cardiovascular/Chest: Present: regular rate, rhythm, no murmur Abdomen: Present: Normal bowel sounds, soft, nontender, nondistended, no rebound tenderness Skin Exam: Present: other - Right foot and toe wrapped Neurologic: Present: alert, normal mood/affect, oriented x 3 Appearance: Present: appropriate appearance, appropriate insight Eye contact: Present: cooperative, good eye contact, normal speech Thoughts: Present: normal thought pattern, no apparent hallucination Assessment/Plan Plan Narrative: WBC normalized. No fever. Wound culture ruling out pathogen, should be able to switch to oral antibiotics based on culture tomorrow and discharge to home if ok with Dr. Allen (Podiatry) with wound care follow up. - Problems/Diagnosis (1) Cellulitis of great toe, right Problem: Acute (2) Diabetes mellitus, type II Problem: Chronic Qualifiers: Diabetes mellitus buttermaker insulin use: without buttermaker use Diabetes mellitus complication status: with skin complications Diabetes mellitus complication detail: with foot ulcer Qualified Code(s): E11.621 - Type 2 diabetes mellitus with foot ulcer; L97.509 - Non-pressure chronic ulcer of other part of unspecified foot with unspecified severity (3) Hemianopia, homonymous, left Problem: Chronic (4) Strep pharyngitis Problem: Chronic (5) Sepsis Problem: Ruled-out Qualifiers: Sepsis type: sepsis due to unspecified organism Sepsis acute organ dysfunction status: with acute organ dysfunction Severe sepsis acute organ dysfunction type: acute renal failure Acute renal failure type: unspecified Severe sepsis shock status: without septic shock Qualified Code(s): A41.9 - Sepsis, unspecified organism; R65.20 - Severe sepsis without septic shock; N17.9 - Acute kidney failure, unspecified (6) Diabetic foot ulcer with osteomyelitis Problem: Ruled-out (7) Osteomyelitis of great toe of right foot Problem: Ruled-out
[2020-09-16] MEDS: HYDROcodone/ACETAMINOPHEN 1 EACH TABLET PO PRN ×5 (01:12→23:04)
[2020-09-16] MEDS: MEROPENEM 1 GM in NORMAL SALINE 100 ML IV SCH ×3 (02:00→19:58)
[2020-09-16 06:49] LABS: Hemoglobin 10.7 gm/dL (13.5-18.0); Mean Cell Volume 88.2 fl (78-100); Mean Corpuscular Hemoglobin 28.6 pg (27-31); Mean Corpuscular Hgb Conc 32.4 g/dl (32-36); Mean Platelet Volume 8.8 fl (8-11.3); Neutrophil # 7.3 K/mm3 (1.3-6.0); Neutrophil % 65.7 % (42-75.0); Platelet Count 453 K/mm3 (150-450); Red Blood Count 3.74 M/mm3 (4.7-6.0); Red Cell Distribution Width 12.8 % (11.5-14.0)
[2020-09-16 07:02] LABS: Albumin * 2.6 gm/dl (3.4-5.0); Anion Gap 16.7 mmol/L (6.8-13.8); BUN/Creatinine Ratio 16.3 (9.0-21.6); Bilirubin, Total 0.4 mg/dL (0.0-1.1); Ca. Corrected For Albumin 9.8 mg/dL (8.4-10.2); Carbon Dioxide 25.1 mmol/L (24-32.6); Potassium 3.8 mmol/L (3.4-4.6); Total Protein 7.5 gm/dL (6.2-8.2)
[2020-09-16] MEDS: INSULIN LISPRO 100 UNITS/ML VIAL SC SCH ×3 (07:17→17:05)
[2020-09-16] MEDS: GABAPENTIN 600 MG TABLET PO SCH ×3 (08:09→17:04)
[2020-09-16] MEDS: MULTIVITAMINS 1 CAP CAPSULE PO SCH (08:09)
[2020-09-16] MEDS: METOPROLOL SUCCINATE 50 MG TABLET.SA PO SCH (08:09)
[2020-09-16] MEDS: LISINOPRIL 40 MG TABLET PO SCH (08:09)
[2020-09-16] MEDS: HYDROCHLOROTHIAZIDE 25 MG TABLET PO SCH (08:10)
[2020-09-16] MEDS: GLIMEPIRIDE 2 MG TABLET PO SCH (08:10)
[2020-09-16] MEDS: RIVAROXABAN 20 MG TABLET PO SCH (08:10)
[2020-09-16] MEDS: amLODIPine BESYLATE 10 MG TABLET PO SCH (08:10)
[2020-09-16] MEDS: SACCHAROMYCES BOULARDII 250 MG CAPSULE PO SCH ×2 (08:10→20:02)
--- NOTE | 2020-09-16 13:41 | PN ---
Subjective - Date and Time Seen Date: 09/16/20 Time: 13:00 Subjective Narrative: Patient seen resting in bedside chair. is with him in room. Reports continued intermittent pain in the right foot/great toe, but continues to improve. He remains afebrile, no chills. WBC count has elevated again today to 11, was 10.5 yesterday. Believes the redness in his foot has continued to improve, but has not resolved. Still with a lot of swelling and cannot bend toes well. He is elevating his leg when seen today. Cultures taken have not resulted as of yet, however preliminary of pre-debridement culture growing Alpha Hemolytic Strep. Dressing was changed once over night due to dressing coming loose when sleeping. Has not been changed since, and believes that it is soaked through again. He is wearing surgical shoe as instructed when bearing weight. No other concerns at this time. Objective - Review of Systems Generalized/Overall Review: Denies: Chills, Fever, Fatigue Respiratory: Denies: Shortness of Breath Cardiac: Reports: Edema Abdominal: Denies: Nausea, Vomiting, Diarrhea Musculoskeletal Complaints: Reports: Other - intermittent right foot pain - improving Neurological: Reports: Numbness, Tingling Skin: Reports: Other - erythema right foot - improving; ulceration right foot - Vitals Vitals: Last Vital Signs Temp 37 C 09/16/20 10:18 Pulse 75 09/16/20 10:18 Resp 18 09/16/20 10:18 BP 127/70 09/16/20 10:18 Pulse Ox 96 09/16/20 10:18 - Abnormal Lab Findings Abnormal Lab Findings: Abnormal Lab Results 09/16/20 09/16/20 Range/Units 06:16 06:16 WBC 11.0 H (4.0-10.5) K/mm3 RBC 3.74 L (4.7-6.0) M/mm3 Hgb 10.7 L (13.5-18.0) gm/dL Hct 33.0 L (42.0-52.0) % Plt Count 453 H (150-450) K/mm3 Immature Gran % (Auto) 1.10 H (0.001-0.429) % Immature Gran # (Auto) 0.12 H (0.000-0.0310) K/mm3 Lymphocytes % 19.8 L (20-51) % Monocytes % 9.6 H (0.0-9) % Neutrophils # 7.3 H (1.3-6.0) K/mm3 Monocytes # 1.1 H (0.0-1.0) k/mm3 Chloride 96 L (97-106) mmol/L Anion Gap 16.7 H (6.8-13.8) mmol/L BUN 35 H (6-23) mg/dL Creatinine 2.15 H (0.4-1.4) mg/dL Est GFR (Non-Af Amer) 33 L (60-130) mL/min Random Glucose 198 H (70-110) mg/dL AST 56 H (0-48) U/L ALT 108 H (19-67) U/L Albumin 2.6 L (3.4-5.0) gm/dl - Exam Exam Narrative: Erythema remains about the right foot, and has again receded some from outlined area, especially laterally with resolution of erythema in 4th and 5th toes. Still with moderate erythema about the medial forefoot and toes 1, 2 and 3, not as severe as day of admission, but worse than remainder of the foot. Edema remains about the foot, but this, too, appears to be reduced, especially laterally with skin lines now visible in 4th and 5th toes. Incision and debridement site remains open, unchanged in size, still draining copious amounts of serous fluid, which could be due in part to edema in his foot as well. Plantar medial arch still with some skin maceration, however this has improved significantly since yesterday. Site of ulceration to the medial base of the great toe as well as plantar head of 1st metatarsal still with fibrotic, slough tissue present. No change in size. These areas do not tunnel or track. Remaining tissues red, healthy, granular. Constitutional: Present: Alert, Oriented x3, Cooperative Extremity: Present: pedal edema - with slight improvement - can see skin lines about the lateral border of the foot, toes 4 and 5 Skin Exam: Present: other - see details above Neurologic: Present: sensory deficit Appearance: Present: appropriate appearance Eye contact: Present: cooperative Thoughts: Present: normal thought pattern Assessment/Plan Plan Narrative: Discussed the condition and treatment options with patient and . Erythema continues to improve proximally and now laterally, however medial forefoot and toes 1, 2, and 3 still with moderate erythema. Again discussed that this area would likely be the last to show improvement as it is where everything started and from which his infection spread. His WBC count has elevated slightly today, but he has remained afebrile, no chills, no nausea, no vomiting. The I&D site relatively unchanged, which I would expect at this point following procedure. He appears to be having a positive response to current treatment with overall improvement, however his localized foot symptoms are far from resolved. He will likely require at least 2-3 weeks of antibiotic therapy following discharge, to be determined once culture results finalize. He will also require frequent follow up of the ulcerations that were uncovered following I&D, as well as the I&D site itself. Again discussed that future debridements will likely be necessary, and the extent of the debridements will depend on the appearance of his foot and response to treatment. Again discussed the chance that he may need extensive surgical debridement with possible amputation should he fail to continue to improve. Again, my goal is to keep him out of the OR and to heal this with aggressive local care and antibiotics, but explained that there is a very high possibility that he may need surgical care. He states understanding of this. The site is cleansed today with sterile saline as well as betadine solution to try to dry some of the macerated skin, as this appears to have helped from yesterday's visit. It is then dressed with Aquacel Ag, dry gauze, roll gauze, and an SARITHA bandage. SARITHA bandage is applied with mild compression to try to help reduce the edema in his foot and lower leg. Will continue to have dressings replaced whenever he soaks through as to keep as much moisture away from his skin as possible to reduce further skin breakdown. I do not feel he is stable enough at this time for discharge home, especially since cultures have not finalized so there is not guidance on outpatient antibiotic treatment. Will continue with current IV antibiotics, and will adjust accordingly as culture results return. Patient again encouraged to decrease activity level and elevate extremity frequently when resting to help reduce edema. Continue use of post op shoe with all weightbearing activity. Will continue to follow. 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
[2020-09-16] MEDS: ROSUVASTATIN CALCIUM 20 MG TABLET PO SCH (20:02)
--- NOTE | 2020-09-16 23:33 | PN ---
Subjective - Date and Time Seen Date: 09/16/20 Time: 12:30 Subjective Narrative: Continues to have swelling and redness of foot. No fever, chills, nausea, or vomiting. Objective - Vitals Vitals: Last Vital Signs Temp 36.2 C 09/16/20 22:31 Pulse 70 09/16/20 22:31 Resp 18 09/16/20 22:31 BP 131/66 09/16/20 22:31 Pulse Ox 97 09/16/20 22:31 - Abnormal Lab Findings Abnormal Lab Findings: Abnormal Lab Results 09/16/20 09/16/20 Range/Units 06:16 06:16 WBC 11.0 H (4.0-10.5) K/mm3 RBC 3.74 L (4.7-6.0) M/mm3 Hgb 10.7 L (13.5-18.0) gm/dL Hct 33.0 L (42.0-52.0) % Plt Count 453 H (150-450) K/mm3 Immature Gran % (Auto) 1.10 H (0.001-0.429) % Immature Gran # (Auto) 0.12 H (0.000-0.0310) K/mm3 Lymphocytes % 19.8 L (20-51) % Monocytes % 9.6 H (0.0-9) % Neutrophils # 7.3 H (1.3-6.0) K/mm3 Monocytes # 1.1 H (0.0-1.0) k/mm3 Chloride 96 L (97-106) mmol/L Anion Gap 16.7 H (6.8-13.8) mmol/L BUN 35 H (6-23) mg/dL Creatinine 2.15 H (0.4-1.4) mg/dL Est GFR (Non-Af Amer) 33 L (60-130) mL/min Random Glucose 198 H (70-110) mg/dL AST 56 H (0-48) U/L ALT 108 H (19-67) U/L Albumin 2.6 L (3.4-5.0) gm/dl - Exam Constitutional: Present: Alert, Oriented x3, Cooperative, No distress Respiratory: Present: lungs clear, normal breath sounds Cardiovascular/Chest: Present: regular rate, rhythm, no edema Abdomen: Present: Normal bowel sounds, soft, nontender, nondistended Skin Exam: Present: other - right foot wrapped Neurologic: Present: no motor/sensory deficits, alert, normal mood/affect Assessment/Plan Plan Narrative: Cultures growing alpha strep. No final reports. Wound continues to have significant amount of drainage. Significant swelling and drainage from right great toe. Podiatry recommends continued inpatient treatment, IV antibiotics, and daily wound treatment. May change to oral antibiotics once cultures become final. - Problems/Diagnosis (1) Cellulitis of great toe, right Problem: Acute (2) Diabetes mellitus, type II Problem: Chronic Qualifiers: Diabetes mellitus usp insulin use: without usp use Diabetes mellitus complication status: with skin complications Diabetes mellitus complication detail: with foot ulcer Qualified Code(s): E11.621 - Type 2 diabetes mellitus with foot ulcer; L97.509 - Non-pressure chronic ulcer of other part of unspecified foot with unspecified severity (3) Hemianopia, homonymous, left Problem: Chronic (4) Strep pharyngitis Problem: Chronic (5) Sepsis Problem: Ruled-out Qualifiers: Sepsis type: sepsis due to unspecified organism Sepsis acute organ dysfunction status: with acute organ dysfunction Severe sepsis acute organ dysfunction type: acute renal failure Acute renal failure type: unspecified Severe sepsis shock status: without septic shock Qualified Code(s): A41.9 - Sepsis, unspecified organism; R65.20 - Severe sepsis without septic shock; N17.9 - Acute kidney failure, unspecified (6) Diabetic foot ulcer with osteomyelitis Problem: Ruled-out (7) Osteomyelitis of great toe of right foot Problem: Ruled-out
[2020-09-17] MEDS: MEROPENEM 1 GM in NORMAL SALINE 100 ML IV SCH ×3 (02:39→19:26)
[2020-09-17 06:33] LABS: Hematocrit 28.7 % (42.0-52.0); Hemoglobin 9.4 gm/dL (13.5-18.0); Mean Cell Volume 87.5 fl (78-100); Mean Corpuscular Hemoglobin 28.7 pg (27-31); Mean Corpuscular Hgb Conc 32.8 g/dl (32-36); Mean Platelet Volume 8.6 fl (8-11.3); Neutrophil # 5.9 K/mm3 (1.3-6.0); Neutrophil % 66.4 % (42-75.0); Platelet Count 392 K/mm3 (150-450); Red Blood Count 3.28 M/mm3 (4.7-6.0); Red Cell Distribution Width 12.7 % (11.5-14.0); White Blood Count 8.9 K/mm3 (4.0-10.5)
[2020-09-17 06:54] LABS: Albumin * 2.2 gm/dl (3.4-5.0); Anion Gap 13.9 mmol/L (6.8-13.8); BUN/Creatinine Ratio 19.6 (9.0-21.6); Bilirubin, Total 0.3 mg/dL (0.0-1.1); Ca. Corrected For Albumin 9.7 mg/dL (8.4-10.2); Calcium * 8.6 mg/dL (7.9-10.9); Carbon Dioxide 25.6 mmol/L (24-32.6); Potassium 3.5 mmol/L (3.4-4.6); Total Protein 6.4 gm/dL (6.2-8.2)
[2020-09-17] MEDS: INSULIN LISPRO 100 UNITS/ML VIAL SC SCH ×3 (07:08→17:13)
[2020-09-17] MEDS: HYDROcodone/ACETAMINOPHEN 1 EACH TABLET PO PRN ×3 (07:12→16:34)
[2020-09-17] MEDS: GLIMEPIRIDE 2 MG TABLET PO SCH (08:03)
[2020-09-17] MEDS: SACCHAROMYCES BOULARDII 250 MG CAPSULE PO SCH ×2 (08:03→20:06)
[2020-09-17] MEDS: HYDROCHLOROTHIAZIDE 25 MG TABLET PO SCH (08:03)
[2020-09-17] MEDS: GABAPENTIN 600 MG TABLET PO SCH ×3 (08:03→17:13)
[2020-09-17] MEDS: LISINOPRIL 40 MG TABLET PO SCH (08:03)
[2020-09-17] MEDS: MULTIVITAMINS 1 CAP CAPSULE PO SCH (08:03)
[2020-09-17] MEDS: RIVAROXABAN 20 MG TABLET PO SCH (08:04)
[2020-09-17] MEDS: METOPROLOL SUCCINATE 50 MG TABLET.SA PO SCH (08:04)
[2020-09-17] MEDS: amLODIPine BESYLATE 10 MG TABLET PO SCH (08:04)
[2020-09-17] MEDS ORDERED: NORMAL SALINE 1,000 ML IV ONE (10:55)
--- NOTE | 2020-09-17 11:15 | PN ---
Subjective - Date and Time Seen Date: 09/17/20 Time: 11:07 Subjective Narrative: I have less pain in the toe. Objective Objective Narrative: 60-year-old male admitted for right great toe cellulitis was evaluated at bedside and was found to be afebrile and in no acute distress. Patient's right great toe looks much better this morning, I attended bedside evaluation with the imaging nurse during rounds this morning and she reports significant improvement in the toe. There is less draining and less erythema and he is responding well to treatment. Labs this morning confirm this with the current IV antibiotic the patient is on his leukocytosis has completely resolved which is a positive sign. He does however have an electrolyte imbalance with hyponatremia and hypochloremia so we will treat him with a bag of IV normal saline in order to address this. Repeat labs were ordered for tomorrow morning for reevaluation. The patient asked about his cultures today and he was informed that he is growing staph and strep but we are still awaiting the susceptibility report in order to determine if we can switch to an oral antibiotic. If this turns out to be the case it is possible that we discharge patient home tomorrow with the blessing of the imaging nurse. - Review of Systems Generalized/Overall Review: Reports: No Symptoms Reported EENTM: Reports: No Symptoms Reported Respiratory: Reports: No Symptoms Reported Cardiac: Reports: No Symptoms Reported Abdominal: Reports: No Symptoms Reported Genitourinary Symptoms: Reports: No Symptoms Reported Musculoskeletal Complaints: Reports: No Symptoms Reported Neurological: Reports: No Symptoms Reported Skin: Reports: Other - Healing ulcer right great toe Endocrine: Reports: No Symptoms Reported - Vitals Vitals: Last Vital Signs Temp 37 C 09/17/20 06:27 Pulse 74 09/17/20 08:04 Resp 16 09/17/20 06:27 BP 143/68 09/17/20 08:04 Pulse Ox 98 09/17/20 06:27 - Abnormal Lab Findings Abnormal Lab Findings: Abnormal Lab Results 09/17/20 09/17/20 Range/Units 06:06 06:06 RBC 3.28 L (4.7-6.0) M/mm3 Hgb 9.4 L (13.5-18.0) gm/dL Hct 28.7 L (42.0-52.0) % Immature Gran % (Auto) 1.00 H (0.001-0.429) % Immature Gran # (Auto) 0.09 H (0.000-0.0310) K/mm3 Lymphocytes % 18.2 L (20-51) % Monocytes % 9.9 H (0.0-9) % Eosinophils % 3.7 H (0.0-3.0) % Sodium 130 L (132-142) mmol/L Chloride 94 L (97-106) mmol/L Anion Gap 13.9 H (6.8-13.8) mmol/L BUN 35 H (6-23) mg/dL Creatinine 1.79 H (0.4-1.4) mg/dL Est GFR (Non-Af Amer) 41 L D (60-130) mL/min Random Glucose 195 H (70-110) mg/dL AST 50 H (0-48) U/L ALT 89 H (19-67) U/L Albumin 2.2 L (3.4-5.0) gm/dl - Exam Constitutional: Present: Alert, Oriented x3, Cooperative, Well developed, Well nourished, No distress, Elderly ENT Exam: Present: normal ENT inspection, hearing grossly normal Breasts: Present: Exam deferred, Nontender Abdomen: Present: obese Extremity: Present: no pedal edema, no calf tenderness, other - Residual swelling and erythema of right lower extremity, diabetic ulcer of great toe with minimal drainage. Skin Exam: Present: other - Residual erythema and ulcer of right great toe. Lymphatic: Present: no adenopathy Appearance: Present: appropriate appearance, appropriate insight, no memory impairment Eye contact: Present: cooperative, good eye contact, normal speech Thoughts: Present: normal thought pattern, no apparent hallucination Assessment/Plan Plan Narrative: We will follow-up with labs in the morning to reevaluate electrolyte levels, we will also follow-up with susceptibility report to determine best oral antibiotic for patient. - Problems/Diagnosis (1) Cellulitis of great toe, right Problem: Acute (2) Sepsis Problem: Ruled-out Qualifiers: Sepsis type: sepsis due to unspecified organism Sepsis acute organ dysfunction status: with acute organ dysfunction Severe sepsis acute organ dysfunction type: acute renal failure Acute renal failure type: unspecified Severe sepsis shock status: without septic shock Qualified Code(s): A41.9 - Sepsis, unspecified organism; R65.20 - Severe sepsis without septic shock; N17.9 - Acute kidney failure, unspecified (3) Hypertension Problem: Chronic Qualifiers: Hypertension type: essential hypertension Qualified Code(s): I10 - Essential (primary) hypertension (4) Hypercholesterolemia Problem: Chronic (5) Diabetes mellitus, type II Problem: Chronic Qualifiers: Diabetes mellitus oysterman insulin use: without retirement use Diabetes mellitus complication status: with skin complications Diabetes mellitus complication detail: with foot ulcer Qualified Code(s): E11.621 - Type 2 diabetes mellitus with foot ulcer; L97.509 - Non-pressure chronic ulcer of other part of unspecified foot with unspecified severity
--- NOTE | 2020-09-17 11:32 | PN ---
Subjective - Date and Time Seen Date: 09/17/20 Subjective Narrative: Patient seen resting in bedside chair. Reports continued intermittent pain in the right foot/great toe, but very minimal. No pain at time of visit. He remains afebrile, no chills. WBC count has again normalized, today at 8.9. The redness in his foot has continued to improve, but has not resolved. Still with a lot of swelling, but this is also improving with addition of compression on his lower leg and foot. He can wiggle his toes a little better today. He is elevating his leg when seen today. Cultures taken have not finalized as of yet, however preliminary of cultures growing Alpha Hemolytic Strep and a Staph species. Patient states today that if his is willing to drive him, he is willing to do IV antibiotics at the [facility] if needed. He is wearing surgical shoe as instructed when bearing weight. No other concerns at this time. Objective - Review of Systems Generalized/Overall Review: Denies: Chills, Fever, Malaise Respiratory: Denies: Shortness of Breath Cardiac: Reports: Edema Abdominal: Denies: Nausea, Vomiting, Diarrhea Musculoskeletal Complaints: Reports: Other - intermittent right foot pain - improving Neurological: Reports: Numbness, Tingling Skin: Reports: Other - erythema right foot; ulceration right foot Endocrine: Denies: Increased Hunger, Increased Thirst - Vitals Vitals: Last Vital Signs Temp 36.7 C 09/17/20 11:04 Pulse 68 09/17/20 11:04 Resp 18 09/17/20 11:04 BP 123/74 09/17/20 11:04 Pulse Ox 96 09/17/20 11:04 - Abnormal Lab Findings Abnormal Lab Findings: Abnormal Lab Results 09/17/20 09/17/20 Range/Units 06:06 06:06 RBC 3.28 L (4.7-6.0) M/mm3 Hgb 9.4 L (13.5-18.0) gm/dL Hct 28.7 L (42.0-52.0) % Immature Gran % (Auto) 1.00 H (0.001-0.429) % Immature Gran # (Auto) 0.09 H (0.000-0.0310) K/mm3 Lymphocytes % 18.2 L (20-51) % Monocytes % 9.9 H (0.0-9) % Eosinophils % 3.7 H (0.0-3.0) % Sodium 130 L (132-142) mmol/L Chloride 94 L (97-106) mmol/L Anion Gap 13.9 H (6.8-13.8) mmol/L BUN 35 H (6-23) mg/dL Creatinine 1.79 H (0.4-1.4) mg/dL Est GFR (Non-Af Amer) 41 L D (60-130) mL/min Random Glucose 195 H (70-110) mg/dL AST 50 H (0-48) U/L ALT 89 H (19-67) U/L Albumin 2.2 L (3.4-5.0) gm/dl - Exam Exam Narrative: Erythema remains about the right foot, but continues to show improvement, especially about the lateral foot. Still with moderate erythema about the medial forefoot and toes 1, 2 and 3, appears less intense than yesterdays evaluation, but remains worse than remainder of the foot. Edema remains about the foot, but this, too, appears to be reduced with addition of compression, no with visible skin lines to dorsum of foot as well. Incision and debridement site remains open, unchanged in size, but drainage has reduced significantly. Now draining moderate amounts of serous fluid. Plantar medial arch no longer macerated. Site of ulceration to the medial base of the great toe as well as plantar head of 1st metatarsal still with fibrotic, slough tissue present. No change in size. These areas do not tunnel or track. Remaining tissues red, healthy, granular. Constitutional: Present: Alert, Oriented x3, Cooperative Extremity: Present: pedal edema - improving Skin Exam: Present: other - see details above Neurologic: Present: sensory deficit Appearance: Present: appropriate appearance Eye contact: Present: cooperative Assessment/Plan Plan Narrative: Erythema continues to improve about the entire foot, most notable dorsal and lateral, however medial forefoot and toes 1, 2, and 3 still with moderate erythema - improved from visit yesterday. Again discussed that this area would likely be the last to show improvement as it is where everything started and from which his infection spread. His WBC count has again normalized, and he has remained afebrile, no chills, no nausea, no vomiting. The I&D site relatively unchanged in size, however drainage has improved substantially. He appears to be having a positive response to current treatment with overall improvement, however his localized foot symptoms are far from resolved. Again discussed that he will likely require at least 2-3 weeks of antibiotic therapy following discharge, to be determined once culture results finalize. This may need to be via IV, and per discussion today he is ok with that option if that is what cultures indicate needs to be done. He will also require frequent follow up of the ulcerations that were uncovered following I&D, as well as the I&D site itself. Again discussed that future debridements will likely be necessary, and the extent of the debridements will depend on the appearance of his foot and response to treatment. Again discussed the chance that he may need extensive surgical debridement with possible amputation should he fail to continue to improve. Again, my goal is to keep him out of the OR and to heal this with aggressive local care and antibiotics, but explained that there is a very high possibility that he may need surgical care. He states understanding of this. The site is cleansed today with sterile saline as well as betadine solution to keep skin from macerating, as this appears to be helping. It is then dressed with Aquacel Ag, dry gauze, roll gauze, and an SARITHA bandage. SARITHA bandage is applied with mild-moderate compression to try to help reduce the edema in his foot and lower leg. Will continue to have dressings replaced whenever he soaks through as to keep as much moisture away from his skin as possible to reduce further skin breakdown. Dr. Mares is in to see patient as well. Case is discussed with her and patient together. We do not feel he is ready at this time for discharge home, especially since cultures have not finalized so there is not guidance on outpatient antibiotic treatment. Will continue with current IV antibiotics, and will adjust accordingly as culture results return. Patient again encouraged to decrease activity level and elevate extremity frequently when resting to help reduce edema. Continue use of post op shoe with all weightbearing activity. Will continue to follow. 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
[2020-09-17] MEDS: ROSUVASTATIN CALCIUM 20 MG TABLET PO SCH (20:06)
[2020-09-18] MEDS: HYDROcodone/ACETAMINOPHEN 1 EACH TABLET PO PRN ×2 (02:12→11:06)
[2020-09-18] MEDS: MEROPENEM 1 GM in NORMAL SALINE 100 ML IV SCH ×2 (02:13→11:07)
[2020-09-18 08:15] LABS: Albumin * 2.5 gm/dl (3.4-5.0); Anion Gap 14.2 mmol/L (6.8-13.8); BUN/Creatinine Ratio 19.8 (9.0-21.6); Bilirubin, Total 0.2 mg/dL (0.0-1.1); Ca. Corrected For Albumin 9.5 mg/dL (8.4-10.2); Calcium * 8.6 mg/dL (7.9-10.9); Carbon Dioxide 26.3 mmol/L (24-32.6); Potassium 4.5 mmol/L (3.4-4.6); Total Protein 6.2 gm/dL (6.2-8.2)
[2020-09-18] MEDS: INSULIN LISPRO 100 UNITS/ML VIAL SC SCH ×2 (08:19→11:45)
[2020-09-18] MEDS: HYDROCHLOROTHIAZIDE 25 MG TABLET PO SCH (08:20)
[2020-09-18] MEDS: GABAPENTIN 600 MG TABLET PO SCH (08:20)
[2020-09-18] MEDS: amLODIPine BESYLATE 10 MG TABLET PO SCH (08:20)
[2020-09-18] MEDS: RIVAROXABAN 20 MG TABLET PO SCH (08:20)
[2020-09-18] MEDS: GLIMEPIRIDE 2 MG TABLET PO SCH (08:20)
[2020-09-18] MEDS: MULTIVITAMINS 1 CAP CAPSULE PO SCH (08:20)
[2020-09-18] MEDS: METOPROLOL SUCCINATE 50 MG TABLET.SA PO SCH (08:20)
[2020-09-18] MEDS: SACCHAROMYCES BOULARDII 250 MG CAPSULE PO SCH (08:20)
[2020-09-18] MEDS: LISINOPRIL 40 MG TABLET PO SCH (08:20)
--- NOTE | 2020-09-18 12:20 | PN ---
Subjective - Date and Time Seen Date: 09/18/20 Time: 11:30 Subjective Narrative: Patient seen resting in bedside chair. Reports continued intermittent pain in the right foot/great toe, but very minimal. States he has pain in his right hip that is worse than his foot pain, believes from being uncomfortable in bed. No pain at time of visit. He remains afebrile, no chills. The redness in his foot has continued to improve, but has not resolved. Still with a moderate amount of swelling, but this is also improving with addition of compression on his lower leg and foot. He can wiggle his toes a little better today. He is elevating his leg when seen today. Cultures have finalized, growing Staph Aureus and Enterococcus Faecalis, both sensitive to oral antibiotics. He is wearing surgical shoe as instructed when bearing weight. No other concerns at this time . He is ready to go home as he is not sleeping well here. Objective - Review of Systems Generalized/Overall Review: Denies: Chills, Fever, Malaise Respiratory: Denies: Shortness of Breath Cardiac: Reports: Edema Abdominal: Denies: Nausea, Vomiting, Diarrhea Musculoskeletal Complaints: Reports: Joint Pain - right hip, Other - intermittent right foot pain Neurological: Reports: Numbness Skin: Reports: Other - erythema right foot; ulcer right foot - Vitals Vitals: Last Vital Signs Temp 36.7 C 09/18/20 11:27 Pulse 71 09/18/20 11:27 Resp 18 09/18/20 11:27 BP 131/74 09/18/20 11:27 Pulse Ox 100 09/18/20 11:27 - Abnormal Lab Findings Abnormal Lab Findings: Abnormal Lab Results 09/18/20 Range/Units 07:09 Anion Gap 14.2 H (6.8-13.8) mmol/L BUN 32 H (6-23) mg/dL Creatinine 1.62 H (0.4-1.4) mg/dL Est GFR (Non-Af Amer) 46 L (60-130) mL/min Random Glucose 197 H (70-110) mg/dL ALT 80 H (19-67) U/L Albumin 2.5 L (3.4-5.0) gm/dl - Exam Exam Narrative: Erythema continues to show improvement, especially about the lateral and dorsal foot. Still with moderate erythema about the medial forefoot and toes 1, 2 and 3, shows imrovement from yesterday's evaluation, but remains worse than rem ainder of the foot. Edema remains about the foot, but this, too, continues to reduce with addition of compression, now with visible skin lines to dorsum of foot as well as the bases of the toes. Incision and debridement site remains open, unchanged in size, but drainage remains reduced and he is beginning to develop some scabbing about the great toe. Still draining moderate amounts of serous fluid from ulcerated sites, but no longer from remainder of I&D site. Plantar medial arch no longer macerated. Site of ulceration to the medial base of the great toe as well as plantar head of 1st metatarsal still with fibrotic, slough tissue present. No changes in size. These areas do not tunnel or track. Remaining tissues red, healthy, granular. Constitutional: Present: Alert, Oriented x3, Cooperative Extremity: Present: normal capillary refill, pedal edema Skin Exam: Present: other - see details above Neurologic: Present: sensory deficit Appearance: Present: appropriate appearance Eye contact: Present: cooperative Assessment/Plan Plan Narrative: Erythema continues to improve about the entire foot, most notable dorsal and lateral. Medial forefoot and toes 1, 2, and 3 still with moderate erythema - but this has again improved from visit yesterday. Again discussed that this area would likely be the last to show improvement as it is where everything started and from which his infection spread. He has remained afebrile, no chills, no nausea, no vomiting. The I&D site relatively unchanged in size, however drainage has improved substantially and he is developing some scabbing. He appears to be having a positive response to current treatment with overall improvement, however his localized foot symptoms are not yet resolved. Again discussed that he will likely require at least 2-3 weeks of antibiotic therapy following discharge, and can switch to oral antibiotics with final cultures and WILFRED available today. He will also require frequent follow up of the ulcerations that were uncovered following I&D, as well as the I&D site itself. Again discussed that future debridements will likely be necessary, and the extent of the debridements will depend on the appearance of his foot and response to treatment. Again discussed the chance that he may need extensive surgical debridement with possible amputation should he fail to continue to improve. Again, my goal is to keep him out of the OR and to heal this with aggressive local care and antibiotics, but explained that there is a very high possibility that he may need surgical care. He states understanding of this. The site is cleansed today with sterile saline as well as betadine solution to keep skin from macerating, as this appears to be helping. It is then dressed with Aquacel Ag, dry gauze, roll gauze, and tape. SARITHA bandage has fallen off the last 2 nights when sleeping, so 2 layers of size E tubigrip are applied over the dressing to both keep dressing intact as well as to provide compression to the lower leg and foot to help reduce edema. He is instructed to keep this dressing clean, dry, and intact, however should he drain through, he may remove, wash well with soap and water, dry thoroughly with a clean towel, then apply a dry dressing of gauze, roll gauze, and tape. Dr. Mares is in to see patient as well. Case is discussed with her and I believe he is ready for discharge home. Would recommend Bactrim DS for outpatient antibiotic treatment per final culture results. I will plan follow up in my office tomorrow morning for dressing change and any needed debridement. Discussed possible transfer of care to the wound center pending follow up tomorrow. States understanding of this. Patient again encouraged to decrease activity level and elevate extremity frequently when resting to help reduce edema. Continue use of post op shoe with all weightbearing activity. - Problems/Diagnosis (1) Cellulitis of great toe, right Problem: Acute (2) Diabetic foot ulcer associated with type 2 diabetes mellitus, with fat layer exposed Problem: Acute Qualifiers: Diabetic foot ulcer location: other Laterality: right Qualified Code(s): E11.621 - Type 2 diabetes mellitus with foot ulcer; L97.512 - Non-pressure chr onic ulcer of other part of right foot with fat layer exposed
--- NOTE | 2020-09-18 12:30 | DS ---
(1) Cellulitis of great toe, right Problem: Acute (2) Sepsis Problem: Ruled-out Qualifiers: Qualified Code(s): A41.9 - Sepsis, unspecified organism; R65.20 - Severe sepsis without septic shock; N17.9 - Acute kidney failure, unspecified (3) Hypertension Problem: Chronic Qualifiers: Qualified Code(s): I10 - Essential (primary) hypertension (4) Hypercholesterolemia Problem: Chronic (5) Diabetes mellitus, type II Problem: Chronic Qualifiers: Qualified Code(s): E11.621 - Type 2 diabetes mellitus with foot ulcer; L97.509 - Non-pressure chronic ulcer of other part of unspecified foot with unspecified severity Date of Discharge:: 09/18/20 Hospital Course: 61-year-old male admitted for cellulitis and diabetic ulcer of his right great toe was evaluated at bedside and was found to be afebrile and in no acute distress. Patient was seen by the careers counsellor this morning who reports significant improvement and his toe. After reviewing the susceptibility report on his culture she recommended discharging him home on Bactrim p.o. to continue treating his infection. She is also setting him up for follow-up tomorrow in her office for wound dressing changes and reevaluation. He has been afebrile and denies any other symptoms. The patient was elated to hear that he is leaving today and denied any other concerns. Procedures Performed: see notes below List Procedures: Incision and drainage right great toe with subsequent dressing changes by careers counsellor. Results and Findings: Lab Pending Results 09/12/20 11:35: SARS-CoV-2 (PCR) Not detected 09/12/20 12:09: WBC 15.0 H, RBC 3.72 L, Hgb 10.9 L, Hct 33.3 L, MCV 89.5, MCH 29.3, MCHC 32.7, RDW 12.9, Plt Count 293, MPV 9.1, Neutrophils % (Manual) 77 H, Band Neuts % (Manual) 3 H, Lymphocytes % (Manual) 10 L, Monocytes % (Manual) 10 H, Neutrophils # (Manual) 11.6 H, Lymphocytes # (Manual) 1.5, Monocytes # (Manual) 1.5 H, Platelet Estimate Normal, RBC Morphology Normal 09/12/20 12:09: Sodium 137, Plasma Sodium 139, Potassium 4.0, Chloride 101, Carbon Dioxide 25.3, Anion Gap 14.7 H, BUN 31 H, Creatinine 2.50 H D, Est GFR (Non-Af Amer) 28 L D, BUN/Creatinine Ratio 12.4, Random Glucose 256 H, Calcium 9.1, Calcium Adj for Albumin 9.7, Total Bilirubin 0.3, AST 24, ALT 42, Alkaline Phosphatase 97, Total Protein 7.5, Albumin 2.8 L 09/12/20 12:09: Procalcitonin 1.87 H 09/12/20 12:09: Lactic Acid, Venous 1.9 09/13/20 08:50: WBC 15.0 H, RBC 3.63 L, Hgb 10.7 L, Hct 32.4 L, MCV 89.3, MCH 29.5, MCHC 33.0, RDW 12.9, Plt Count 410, MPV 9.0, Immature Gran % (Auto) 0.70 H, Immature Gran # (Auto) 0.10 H, Neutrophils % 74.7, Neutrophils % (Manual) 83 H, Lymphocytes % 13.2 L, Lymphocytes % (Manual) 8 L, Monocytes % 10.4 H, Monocytes % (Manual) 8, Eosinophils % 0.5, Eosinophils % (Manual) 1, Basophils % 0.5, Nucleated RBC % 0.0, Neutrophils # 11.2 H, Neutrophils # (Manual) 12.5 H, Lymphocytes # 1.98, Lymphocytes # (Manual) 1.2 L, Monocytes # 1.6 H, Monocytes # (Manual) 1.2 H, Eosinophils # 0.1, Eosinophils # (Manual) 0.2, Absolute Basophil s 0.1, Platelet Estimate Normal, RBC Morphology Normal 09/13/20 08:50: Sodium 138, Plasma Sodium 141, Potassium 3.4, Chloride 100, Carbon Dioxide 28.4, Anion Gap 13.0, BUN 27 H, Creatinine 2.22 H, Est GFR (Non- Af Amer) 32 L, BUN/Creatinine Ratio 12.2, Random Glucose 258 H, Calcium 9.2, Calcium Adj for Albumin 9.8, Total Bilirubin 0.5, AST 45, ALT 57, Alkaline Phosphatase 100, Total Protein 7.8, Albumin 2.8 L 09/14/20 08:13: WBC 11.5 H D, RBC 3.63 L, Hgb 10.5 L, Hct 32.2 L, MCV 88.7, MCH 28.9, MCHC 32.6, RDW 13.0, Plt Count 364, MPV 8.8, Immature Gran % (Auto) 1.20 H, Immature Gran # (Auto) 0.14 H, Neutrophils % 72.9, Lymphocytes % 13.2 L, Monocytes % 11.2 H, Eosinophils % 1.0, Basophils % 0.5, Nucleated RBC % 0.0, Neutrophils # 8.4 H, Lymphocytes # 1.51, Monocytes # 1.3 H, Eosinophils # 0.1, Absolute Basophils 0.1 09/14/20 08:13: Sodium 133, Plasma Sodium 136, Potassium 3.6, Chloride 98, Carbon Dioxide 25.6, Anion Gap 13.0, BUN 33 H, Creatinine 2.11 H, Est GFR (Non- Af Amer) 34 L, BUN/Creatinine Ratio 15.6, Random Glucose 264 H, Calcium 9.0, Calcium Adj for Albumin 9.8, Total Bilirubin 0.3, AST 80 H, ALT 100 H, Alkaline Phosphatase 94, Total Protein 7.4, Albumin 2.6 L 09/15/20 06:34: WBC 10.4, RBC 3.32 L, Hgb 9.6 L, Hct 29.7 L, MCV 89.5, MCH 28.9, MCHC 32.3, RDW 13.0, Plt Count 348, MPV 8.7, Immature Gran % (Auto) 1.60 H, Immature Gran # (Auto) 0.17 H, Neutrophils % 65.6, Lymphocytes % 17.9 L, Monocytes % 11.9 H, Eosinophils % 2.2, Basophils % 0.8, Nucleated RBC % 0.0, Neutrophils # 6.9 H, Lymphocytes # 1.87, Monocytes # 1.2 H, Eosinophils # 0.2, Absolute Basophils 0.1 09/15/20 06:34: Sodium 134, Plasma Sodium 137, Potassium 3.5, Chloride 99, Carbo n Dioxide 25.3, Anion Gap 13.2, BUN 38 H, Creatinine 2.31 H, Est GFR (Non-Af Amer) 31 L, BUN/Creatinine Ratio 16.5, Random Glucose 259 H, Calcium 8.7, Calcium Adj for Albumin 9.7, Total Bilirubin 0.2, AST 77 H, ALT 111 H, Alkaline Phosphatase 95, Total Protein 6.9, Albumin 2.4 L 09/16/20 06:16: WBC 11.0 H, RBC 3.74 L, Hgb 10.7 L, Hct 33.0 L, MCV 88.2, MCH 28.6, MCHC 32.4, RDW 12.8, Plt Count 453 H, MPV 8.8, Immature Gran % (Auto) 1.10 H, Immature Gran # (Auto) 0.12 H, Neutrophils % 65.7, Lymphocytes % 19.8 L, Monocytes % 9.6 H, Eosinophils % 3.0, Basophils % 0.8, Nucleated RBC % 0.0, Neutrophils # 7.3 H, Lymphocytes # 2.18, Monocytes # 1.1 H, Eosinophils # 0.3, Absolute Basophils 0.1 09/16/20 06:16: Sodium 134, Plasma Sodium 136, Potassium 3.8, Chloride 96 L, Carbon Dioxide 25.1, Anion Gap 16.7 H, BUN 35 H, Creatinine 2.15 H, Est GFR (Non-Af Amer) 33 L, BUN/Creatinine Ratio 16.3, Random Glucose 198 H, Calcium 9.0, Calcium Adj for Albumin 9.8, Total Bilirubin 0.4, AST 56 H, ALT 108 H, Alkaline Phosphatase 96, Total Protein 7.5, Albumin 2.6 L 09/17/20 06:06: WBC 8.9, RBC 3.28 L, Hgb 9.4 L, Hct 28.7 L, MCV 87.5, MCH 28.7, MCHC 32.8, RDW 12.7, Plt Count 392, MPV 8.6, Immature Gran % (Auto) 1.00 H, Immature Gran # (Auto) 0.09 H, Neutrophils % 66.4, Lymphocytes % 18.2 L, Monocytes % 9.9 H, Eosinophils % 3.7 H, Basophils % 0.8, Nucleated RBC % 0.0, Neutrophils # 5.9, Lymphocytes # 1.62, Monocytes # 0.9, Eosinophils # 0.3, Absolute Basophils 0.1 09/17/20 06:06: Sodium 130 L, Plasma Sodium 132, Potassium 3.5, Chloride 94 L, Carbon Dioxide 25.6, Anion Gap 13.9 H, BUN 35 H, Creatinine 1.79 H, Est GFR (Non-Af Amer) 41 L D, BUN/Creatinine Ratio 19.6, Random Glucose 195 H, Calcium 8.6, Calcium Adj for Albumin 9.7, Total Bilirubin 0.3, AST 50 H, ALT 89 H, Alkaline Phosphatase 81, Total Protein 6.4, Albumin 2.2 L 09/18/20 07:09: Sodium 134, Plasma Sodium 136, Potassium 4.5 D, Chloride 98, Carbon Dioxide 26.3, Anion Gap 14.2 H, BUN 32 H, Creatinine 1.62 H, Est GFR (Non-Af Amer) 46 L, BUN/Creatinine Ratio 19.8, Random Glucose 197 H, Calcium 8.6, Calcium Adj for Albumin 9.5, Total Bilirubin 0.2, AST 36, ALT 80 H, Alkaline Phosphatase 93, Total Protein 6.2, Albumin 2.5 L Discharge Location: Home Disposition: Home self-care Condition: Good Face to Face Encounter completed per [facility] Guidelines: No Discharge Activity: Activity as tolerated Discharge Diet: Consistent carbs Referrals: Jose Mack DO [Primary Care Provider] - Problem Oriented Discharge Instructions to Patient/Family: Acute Kidney Injury, Adult, Cellulitis, Adult, [id number] Additional Patient Instructions (free text): Follow up with Dr Allen in the wound center. Prescriptions (Any new or edited meds): Sulfamethoxazole/Trimethoprim [Bactrim Ds] 1 tab PO BID 7 Days #14 tab Transmission Status: Pending to [facility] Mail Delivery HYDROcodone/ACETAMINOPHEN [Hydrocodon-Acetaminophen 5-325] 1 each PO Q6H PRN #20 tablet PRN Reason: Pain Transmission Status: Received by [place] Complete Home Medications List: Complete Home Medication List: Accu-Chek Sharona Plus Meter See Dose Instructions .ROUTE .MEDSUPPLY #1 ea NS 09/30/18 rosuvastatin 40 mg tablet 40 mg PO DAILY #90 tab 01/13/20 metoprolol succinate 50 mg tablet,extended release 24 hr 50 mg PO DAILY #90 tab 06/02/20 lisinopril 20 mg-hydrochlorothiazide 25 mg tablet 2 tab PO DAILY #180 tab 06/28/20 Accu-Chek Sharona Control Soln solution See Rx Instructions .ROUTE .MEDSUPPLY #1 ea NS 01/04/21 Accu-Chek Sharona Plus test strp See Dose Instructions .ROUTE .MEDSUPPLY #100 ea NS 08/08/20 lancets See Dose Instructions .ROUTE .MEDSUPPLY #100 ea 08/08/20 amlodipine 10 mg tablet 10 mg PO DAILY #90 tab 08/09/20 blood sugar diagnostic See Dose Instructions .ROUTE .MEDSUPPLY #50 ea 08/09/20 gabapentin 600 mg tablet 1,200 mg PO TID 90 Days #540 tab 08/09/20 glimepiride 2 mg tablet 2 mg PO DAILY #90 tab 08/09/20 metformin 1,000 mg tablet 1,000 mg PO BID #180 tab 08/09/20 rivaroxaban 20 mg tablet 20 mg PO DAILY 90 Days #90 tab 08/09/20 Ascorbic Acid [Vitamin C] 500 mg PO DAILY 09/12/20 Multivitamin 1 ea PO DAILY 09/12/20 HYDROcodone/ACETAMINOPHEN [Hydrocodon-Acetaminophen 5-325] 1 each PO Q6H PRN #20 tablet 09/18/20 Sulfamethoxazole/Trimethoprim [Bactrim Ds] 1 tab PO BID 7 Days #14 tab 09/18/20 Forms: Patient Portal Registration
[2020-09-18 13:46] VITALS: BP 120/65
== END 2020-09-18 14:05 | disposition home or self-care (01) | DRG 603 ==
LOC: MS 10:27
PROVIDERS: ADMIT Family Medicine; ATTEND Family Medicine
DX: I10 Essential (primary) hypertension; J02.0 Streptococcal pharyngitis; E11.69 Type 2 diabetes mellitus with other specified complication; L97.512 Non-pressure chronic ulcer of other part of right foot with fat layer exposed; E11.40 Type 2 diabetes mellitus with diabetic neuropathy, unspecified; E78.00 Pure hypercholesterolemia, unspecified; L03.031 Cellulitis of right toe; H53.462 Homonymous bilateral field defects, left side; Z79.4 Long term (current) use of insulin; E11.621 Type 2 diabetes mellitus with foot ulcer